=== PATIENT | female | born 1935 | race Caucasian/White ===

== ENCOUNTER → 2016-08-07 | Outpatient (CLI) | payer MEDICARE, OTHER ==
[~2016-08-07] VITALS: Ht 154.9 cm; Wt 50.8 kg
[~2016-08-07] MED LIST: /SUCR1TA; ACET65TA; AMLO10TAB; BABY81CH; BENA10TA2; CALCCHW12; LIDOCAINE VISCOUS 2% SOLN 15ML UDC As Ordered ONE; LIDOCAINE VISCOUS 2% SOLN 15ML UDC MT ONE; LOVA20TA2; MIDAZOLAM INJ 2 MG/2 ML VIAL (J2250) As Ordered ONE; MIDAZOLAM INJ 2 MG/2 ML VIAL (J2250) IV ONE; NS 1,000 ML IV SCH; PRIL20CA; fentaNYL 100 MCG/2 ML INJECTION (J3010) As Ordered ONE; fentaNYL 100 MCG/2 ML INJECTION (J3010) IV ONE
--- NOTE | 2016-08-07 13:24 | T-ECHO ---
DATE OF STUDY: 08/07/2016 INDICATION: Mitral valve prolapse. Severe mitral insufficiency. PROCEDURE: Transesophageal echocardiogram. BRIEF HISTORY: Mrs. Yadav is a 81-year-old female who has known mitral valve prolapse with significant mitral insufficiency. As of lately, she became more symptomatic with exertional dyspnea and she also has evidence for atrial arrhythmias. Consequently she was brought for transesophageal echocardiogram to evaluate the mitral valve and assist with decision making regarding need for invasive treatment. The nature of the procedure, its indication, possible complications were discussed with the patient and her on outpatient basis. She signed appropriate consent. PROCEDURE NOTE: Procedure was performed in endoscopy suite. The patient presented in fasting condition. She previously signed appropriate consent. Posterior pharynx was anesthetized using viscous lidocaine and Cetacaine spray. The patient was positioned in left lateral decubitus position and a bite block was secured in her mouth. Probe was then introduced into esophagus and later stomach without difficulty. After appropriate images were obtained it was withdrawn. There were no immediate complications. FINDINGS: Left ventricle has hyperdynamic contractility and I estimate ejection fraction (EF) around 65-70%. Right ventricle does not appear enlarged. Both atria are severely enlarged. Mitral valve exhibits severe prolapse of posterior mitral leaflets with chordal rupture and resulting severe very eccentric mitral insufficiency. There is no convincing flow reversal in pulmonary veins though. I suspect this is most likely due to degree of left atrial enlargement. Tricuspid valve also appears to be slightly redundant and there is approximately moderate tricuspid insufficiency. Calculated pulmonary artery pressure is in high 40s, possibly even higher corresponding to at least moderate pulmonary hypertension. Aortic valve appears normal. By color Doppler imaging, there is no stenosis and trivial insufficiency. Pulmonic valve also appears normal and is functionally competent. Left atrial appendage is large and free of thrombus. Flow in both left-sided and right-sided pulmonary veins appears normal with exception of reversal of systolic flow post PAC. Atrial septum is intact by two-dimensional and color Doppler imaging and is bulging towards the right. There is small degree of atherosclerosis in aortic arch and visualized segment of descending aorta. CONCLUSIONS: 1. Hyperdynamic LV systolic function. 2. Severe posterior mitral leaflet prolapse with torn and resulting severe mitral insufficiency. 3. Trace aortic insufficiency. 4. Moderate tricuspid insufficiency. 5. At least moderate pulmonary hypertension. 6. Mild thoracic aortic atherosclerosis. COMMENTS: SBE prophylaxis is not recommended. The patient will be set up for a right and left heart catheterization with likely mitral and tricuspid valve surgery to follow. Her preference is to have Dr. Dany Crystal as a surgeon and I will contact him with these plans and provide a copy of this transesophageal echocardiogram. A total 4 mg of IV Versed and 50 mcg of IV fentanyl were used for sedation.
[2016-08-07 13:27] VITALS: BP 149/84
== END | disposition home or self-care (01) ==
LOC: M OPP 11:01
PROVIDERS: ATTEND Internal Medicine Cardiovascular Disease
DX: I08.0 Rheumatic disorders of both mitral and aortic valves (principal); I50.1 Left ventricular failure, unspecified; I27.2 Other secondary pulmonary hypertension; I70.0 Atherosclerosis of aorta; K21.9 Gastro-esophageal reflux disease without esophagitis; Z88.8 Allergy status to other drugs, medicaments and biological substances; Z82.49 Family history of ischemic heart disease and other diseases of the circulatory system
CPT/HCPCS: 93312; 93320; 93325; J2250; J3010

== ENCOUNTER → 2016-09-25 | Outpatient (CLI) | payer MEDICARE, OTHER ==
[~2016-09-25] MED LIST changes: -LIDOCAINE VISCOUS 2% SOLN 15ML UDC As Ordered ONE; -LIDOCAINE VISCOUS 2% SOLN 15ML UDC MT ONE; -MIDAZOLAM INJ 2 MG/2 ML VIAL (J2250) As Ordered ONE; -MIDAZOLAM INJ 2 MG/2 ML VIAL (J2250) IV ONE; -NS 1,000 ML IV SCH; -fentaNYL 100 MCG/2 ML INJECTION (J3010) As Ordered ONE; -fentaNYL 100 MCG/2 ML INJECTION (J3010) IV ONE
--- NOTE | 2016-09-25 15:32 | REPMRS ---
Patient History The patient states she had a clinical breast exam in 10/07 Patient is postmenopausal and has history of cervical cancer at age 50. Family history of prostate cancer in father at age 50 or over, breast cancer in paternal aunt at age 50 or over, prostate cancer in 2 brothers at age 50 or over, and breast cancer in maternal uncle at age 50 or over. Benign excisional biopsy of the left breast, 1995. Benign excisional biopsy of the right breast, 1987. Benign stereotatic breast biopsy of the left breast. Digital Woman Screen Mammo: September 25, 2016 - Exam #: [id number] Bilateral CC and MLO view(s) were taken. Technologist: Stacy Newsome, Technologist Prior study comparison: September 26, 2015, digital woman screen mammo performed at [facility]. September 21, 2014, digital woman screen mammo performed at [facility]. September 20, 2013, digital woman screen mammo performed at [facility]. September 17, 2011, digital woman screen mammo performed at [facility] [employer] [facility]. FINDINGS: There are scattered fibroglandular densities. There are scattered areas of microcalcifications in the left and to a lesser extent, the right breast unchanged from multiple prior studies. There has been no change in the appearance of the mammogram from the prior studies. There is a mild amount of scattered fibroglandular density which is fairly symmetric. There is no interval development of dominant mass, architectural distortion, or clustered microcalcification suggestive of malignancy. ASSESSMENT: BI-RADS/ACR category 1 mammogram. Negative. Recommendation Routine screening mammogram in 1 year (for women over age 40). This mammogram was interpreted with the aid of an FDA-approved computer-aided dectection system. Electronically Signed By: Daniel Hager MD 09/25/16 [id number]
== END ==
LOC: M WHC 09:36
PROVIDERS: ATTEND Internal Medicine
DX: Z12.31 Encounter for screening mammogram for malignant neoplasm of breast (principal); Z78.0 Asymptomatic menopausal state; Z85.41 Personal history of malignant neoplasm of cervix uteri; Z80.42 Family history of malignant neoplasm of prostate; Z92.89 Personal history of other medical treatment

== ENCOUNTER → 2016-11-06 | Outpatient (REF) | payer MEDICARE, OTHER ==
[2016-11-07 13:14] LABS: INR 3.44
== END ==
LOC: M LAB REF 13:10
PROVIDERS: ATTEND Internal Medicine Cardiovascular Disease
DX: I34.0 Nonrheumatic mitral (valve) insufficiency (principal); Z51.81 Encounter for therapeutic drug level monitoring; Z79.01 Long term (current) use of anticoagulants

== ENCOUNTER → 2017-09-10 | Outpatient (CLI) | payer MEDICARE, OTHER | LOC: M SMT 14:23 | DX: R06.00 Dyspnea, unspecified (principal); Z95.5 Presence of coronary angioplasty implant and graft; Z95.0 Presence of cardiac pacemaker; R91.1 Solitary pulmonary nodule; R91.8 Other nonspecific abnormal finding of lung field | CPT/HCPCS: 71046 ==

== ENCOUNTER → 2017-09-26 | Outpatient (CLI) | payer MEDICARE, OTHER | LOC: M WHC 11:05 | DX: Z12.31 Encounter for screening mammogram for malignant neoplasm of breast (principal); Z78.0 Asymptomatic menopausal state; Z92.89 Personal history of other medical treatment | CPT/HCPCS: 77067 ==

== ENCOUNTER → 2017-10-03 | Outpatient (CLI) | payer MEDICARE, OTHER | LOC: M RAD 09:58 | DX: R91.1 Solitary pulmonary nodule (principal); Z95.2 Presence of prosthetic heart valve | CPT/HCPCS: 71250 ==

== ENCOUNTER → 2017-11-06 | Outpatient (CLI) | payer MEDICARE, OTHER | LOC: M SMT 12:52 | DX: I51.7 Cardiomegaly (principal); Z95.1 Presence of aortocoronary bypass graft; Z95.0 Presence of cardiac pacemaker; J84.10 Pulmonary fibrosis, unspecified | CPT/HCPCS: 71046 ==

== ENCOUNTER → 2018-10-22 | Outpatient (CLI) | payer MEDICARE, OTHER ==
[~2018-10-22] MED LIST changes: -/SUCR1TA; +SUCR1TAB56
--- NOTE | 2018-10-22 14:12 | REPMRS ---
Patient History The patient states she has not had a clinical breast exam in over a year. Patient is postmenopausal and has history of cervical cancer at age 50 and basal cell skin cancer starting at 77.. Family history of breast cancer at age 50 or over in paternal aunt, breast cancer at age 50 or over in maternal uncle, prostate cancer at age 50 or over in father, prostate cancer at age 50 or over in brother, prostate cancer at age 50 or over in brother, ovarian cancer at age 50 or over in paternal aunt. Benign excisional biopsy of the left breast, 1995. Benign excisional biopsy of the right breast, 1987. Benign stereotatic breast biopsy of the left breast. No Hormone Replacement Therapy Digital Woman Screen Mammo: October 22, 2018 - Exam #: [id number] Bilateral CC and MLO view(s) were taken. Technologist: Jasmin Layne, Technologist Prior study comparison: September 26, 2017, bilateral digital woman screen mammo performed at [facility]. September 25, 2016, digital woman screen mammo performed at [facility]. September 26, 2015, digital woman screen mammo performed at [facility]. October 01, 2013, left breast digital mammo diagnostic unilateral, performed at [facility]. FINDINGS: There are scattered fibroglandular densities. There are scattered stable areas of microcalcification again noted in the left breast unchanged from multiple prior studies. There has been no change in the appearance of the mammogram from the prior studies. There is a mild amount of scattered fibroglandular density which is fairly symmetric. There is no interval development of dominant mass, architectural distortion, or grouped microcalcification suggestive of malignancy. 3-D tomosynthesis shows no additional findings. Assessment: BI-RADS/ACR category 2 mammogram. Benign Findings. Recommendation Routine screening mammogram of both breasts in 1 year (for women over age 40). This patient's Lifetime Breast Cancer Risk is estimated at 1.6 %. This mammogram was interpreted with the aid of an FDA-approved computer-aided dectection system. Electronically Signed By: Daniel Hager MD 10/22/18 [id number]
== END ==
LOC: M WHC 13:03
PROVIDERS: ATTEND Internal Medicine
DX: Z12.31 Encounter for screening mammogram for malignant neoplasm of breast (principal)

== ENCOUNTER 2019-01-26 09:17 | Day surgery (SDC) | payer MEDICARE, OTHER ==
[~2019-01-26] VITALS: Ht 154.9 cm; Wt 51.7 kg
[~2019-01-26 09:17] MED LIST changes: +LEXA1TAB PO; +LOSA100T8 PO; +LOVA10TA PO; +METO25TA4 PO; +WARF-58 PO
[2019-01-26] MEDS ORDERED: NS 1,000 ML IV ONE (10:00)
[2019-01-26] MEDS ORDERED: LIDOCAINE 2% INJ 100 MG/5 ML SDV (FOR ANES.) As Ordered ONE (10:43)
[2019-01-26] MEDS ORDERED: PROPOFOL 200 MG/20 ML VIAL As Ordered ONE ×2 (10:43→11:36)
[2019-01-26] MEDS ORDERED: PHENYLephrine HCL 500 MCG/5 ML (100MCG/ML) SYRINGE (J2370) As Ordered ONE (11:39)
--- NOTE | 2019-01-26 11:49 | ROOR ---
Patient Name: Cecilia Yadav Procedure Date: 01/26/2019 11:07 AM Date of : 1935 Age: 83 Room: LTAC, [facility] Gender: Female Note Status: Finalized Procedure: Colonoscopy Indications: High risk colon cancer surveillance: Personal history of colonic polyps Providers: Lopez ROGERS MD Referring MD: KIP GORDON MD Requesting Provider: Medicines: Monitored Anesthesia Care Complications: No immediate complications. Procedure: Pre-Anesthesia Assessment: - The heart rate, respiratory rate, oxygen saturations, blood pressure, adequacy of pulmonary ventilation, and response to care were monitored throughout the procedure. The Colonoscope was introduced through the anus and advanced to the terminal ileum, with identification of the appendiceal orifice and IC valve. The colonoscopy was performed without difficulty. The patient tolerated the procedure well. The quality of the bowel preparation was good. Findings: The perianal and digital rectal examinations were normal. Two sessile polyps were found in the hepatic flexure and cecum. The polyps were 4 to 5 mm in size. These polyps were removed with a cold snare. Resection and retrieval were complete. A 10 mm polyp was found in the splenic flexure. The polyp was sessile. The polyp was removed with a piecemeal technique using a cold snare. Resection and retrieval were complete. Mild sigmoid diverticulosis and small internal hemorrhoids. The exam was otherwise without abnormality on direct and retroflexion views. Impression: - Two 4 to 5 mm polyps at the hepatic flexure and in the cecum, removed with a cold snare. Resected and retrieved. - One 10 mm polyp at the splenic flexure, removed piecemeal using a cold snare. Resected and retrieved. - Mild sigmoid diverticulosis and small internal hemorrhoids. - The examination was otherwise normal on direct and retroflexion views. Recommendation: - Repeat colonoscopy in 3 years for surveillance. - Resume Coumadin (warfarin) at prior dose tomorrow. Lopez Rogers MD Lopez ROGERS MD 01/26/2019 11:49:03 AM Electronically signed by Lopez ROGERS MD Number of Addenda: 0 Note Initiated On: 01/26/2019 11:07 AM Estimated Blood Loss: Estimated blood loss: none.
[2019-01-26 12:05] VITALS: BP 150/98
== END 2019-01-26 12:31 | disposition home or self-care (01) ==
LOC: M OPP 09:17
PROVIDERS: ATTEND Internal Medicine Gastroenterology
DX: Z12.11 Encounter for screening for malignant neoplasm of colon (principal); Z86.010 Personal history of colon polyps; Z80.0 Family history of malignant neoplasm of digestive organs; K63.5 Polyp of colon; K57.30 Diverticulosis of large intestine without perforation or abscess without bleeding; K64.8 Other hemorrhoids; I48.91 Unspecified atrial fibrillation; Z95.0 Presence of cardiac pacemaker; Z95.4 Presence of other heart-valve replacement; Z87.891 Personal history of nicotine dependence; Z79.891 Long term (current) use of opiate analgesic
CPT/HCPCS: 45385; 88305; J2370

== ENCOUNTER → 2019-11-09 | Outpatient (CLI) | payer MEDICARE, OTHER ==
--- NOTE | 2019-11-24 14:35 | REPMRS ---
Patient History The patient states she had a clinical breast exam in September 2019. Patient is postmenopausal and has history of cervical cancer at age 50. Family history of breast cancer at age 50 or over in paternal aunt, breast cancer at age 50 or over in maternal uncle, prostate cancer at age 50 or over in father, prostate cancer at age 50 or over in brother, prostate cancer at age 50 or over in brother, ovarian cancer at age 50 or over in paternal aunt. Benign excisional biopsy of the left breast, 1995. Benign excisional biopsy of the right breast, 1987. Benign stereotatic breast biopsy of the left breast. No Hormone Replacement Therapy Digital Woman Screen Mammo: November 09, 2019 - Exam #: [id number] Bilateral CC and MLO view(s) were taken. Technologist: Jeni Evangelista Technologist Prior study comparison: October 22, 2018, bilateral digital woman screen mammo performed at [facility]. September 26, 2017, bilateral digital woman screen mammo performed at [facility]. September 25, 2016, digital woman screen mammo performed at [facility]. FINDINGS: There are scattered fibroglandular densities. The Volpara volumetric breast density category is:B. There is a pacemaker power plant projecting over the left axilla on the MLO view. There aree stable calcifications again noted on the left. There has been no change in the appearance of the mammogram from the prior studies. There is a mild amount of scattered fibroglandular density which is fairly symmetric. There is no interval development of dominant mass, architectural distortion, or grouped microcalcification suggestive of malignancy. 3-D tomosynthesis shows no additional findings. Assessment: BI-RADS/ACR category 2 mammogram. Benign Findings. Recommendation Routine screening mammogram of both breasts in 1 year (for women over age 40). This patient's Lifetime Breast Cancer Risk is estimated at 1.2 %. This mammogram was interpreted with the aid of an FDA-approved computer-aided dectection system. Electronically Signed By: Daniel Hager MD 11/24/19 [id number]
== END ==
LOC: M WHC 17:09
PROVIDERS: ATTEND Internal Medicine
DX: Z12.31 Encounter for screening mammogram for malignant neoplasm of breast (principal)

== ENCOUNTER → 2020-10-23 | Outpatient (CLI) | payer MEDICARE, OTHER ==
--- NOTE | 2020-10-23 19:48 | REP ---
INDICATION: I48.91 UNSPECIFIED ATRIAL FIBRILLATION COMPARISON: 11/06/2017. TECHNIQUE: PA/Lateral FINDINGS: Lungs: There are stable chronic bibasilar fibrotic changes. No superimposed acute infiltrate is seen. Heart: There is moderate cardiomegaly. Mediastinum: There is calcification of the thoracic aorta. The mediastinal silhouette is unchanged. Pleural angles: Unremarkable.. Bones and soft tissues: There are degenerative changes of the spine. 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 IMPRESSION: Chronic fibrotic changes and moderate cardiomegaly. No significant change compared to the prior study. <Electronically signed by Omi Pinzon > 10/23/20 [id number]
== END ==
LOC: M WUC 14:23
PROVIDERS: ATTEND Internal Medicine
DX: I48.91 Unspecified atrial fibrillation (principal); I51.7 Cardiomegaly; J84.10 Pulmonary fibrosis, unspecified; Z95.0 Presence of cardiac pacemaker

== ENCOUNTER → 2020-11-03 | Outpatient (CLI) | payer MEDICARE, OTHER ==
[~2020-11-03] MED LIST changes: +ISOVUE-370 76% 100ML VIAL As Ordered ONE
--- NOTE | 2020-11-03 11:39 | REP ---
INDICATION: COUGH. COMPARISON: Chest x-ray 10/23/2020 TECHNIQUE: Scans were obtained during contrast administration. FINDINGS: Since the previous study a segmental area of consolidation has developed in the right lower lobe. Chronic changes noted in the left lower lobe and right upper lobe. The lungs are emphysematous. No hilar or mediastinal adenopathy. The heart is enlarged No pleural effusion. Adrenal glands not enlarged. IMPRESSION: Right lower lobe pneumonia has developed since the previous study. <Electronically signed by Wai Steinberg > 11/03/20 1133
== END ==
LOC: M RAD 11:08
PROVIDERS: ATTEND Internal Medicine
DX: J18.9 Pneumonia, unspecified organism (principal); R05 Cough
CPT/HCPCS: 71260; Q9967

== ENCOUNTER → 2020-11-17 | Outpatient (CLI) | payer MEDICARE, OTHER ==
[~2020-11-17] MED LIST changes: -ISOVUE-370 76% 100ML VIAL As Ordered ONE
--- NOTE | 2020-11-17 12:11 | REPMRS ---
Patient History The patient states she has not had a clinical breast exam in over a year. Family history of breast cancer at age 50 or over in paternal aunt, breast cancer at age 50 or over in maternal uncle, prostate cancer at age 50 or over in father, prostate cancer at age 50 or over in brother, prostate cancer at age 50 or over in brother, ovarian cancer at age 50 or over in paternal aunt. Benign excisional biopsy of the left breast, 1995. Benign excisional biopsy of the right breast, 1987. Benign stereotatic breast biopsy of the left breast. No Hormone Replacement Therapy Moderna vaccine 05/05/20 right arm. 06/01/20 right arm. Patient states no breast complaints today. Patient has signed MRS History Sheet. Digital Woman Screen Mammo: November 17, 2020 - Exam #: [id number] Bilateral CC and MLO view(s) were taken. Technologist: Ellie Spicer, RT Prior study comparison: November 09, 2019, bilateral digital woman screen mammo performed at [facility]. October 22, 2018, bilateral digital woman screen mammo performed at [facility]. September 26, 2017, bilateral digital woman screen mammo performed at [facility]. FINDINGS: The breast tissue is heterogeneously dense. This may lower the sensitivity of mammography. The Volpara volumetric breast density category is: C. Multiple skin moles are again seen projecting on the left. The left MLO view today shows a nodular density with punctate calcifications seen superiorly and posteriorly. This appears more prominent. This merits further evaluation. It is only seen in the MLO projection. There is a moderate amount of heterogeneously dense fibroglandular tissue which is fairly symmetric. There is no other interval development of dominant mass, architectural distortion, or grouped microcalcification typical of malignancy. There has been no other change in the appearance of the mammogram from the prior studies. 3-D tomosynthesis shows no additional findings. Assessment: BI-RADS/ACR category 0 mammogram, Incomplete: Need additional imaging evaluation and/or prior mammograms for comparison. Recommendation Ultrasound and special view mammogram of the left breast. This patient's [facility] Lifetime Breast Cancer RIsk is estimated at 0.8 %. This mammogram was interpreted with the aid of an FDA-approved computer-aided dectection system. Electronically Signed By: Daniel Hager MD 11/17/20 1417
== END ==
LOC: M WHC 10:34
PROVIDERS: ATTEND Internal Medicine
DX: Z12.31 Encounter for screening mammogram for malignant neoplasm of breast (principal); Z80.3 Family history of malignant neoplasm of breast; Z80.42 Family history of malignant neoplasm of prostate; Z80.41 Family history of malignant neoplasm of ovary; Z98.890 Other specified postprocedural states; R92.8 Other abnormal and inconclusive findings on diagnostic imaging of breast

== ENCOUNTER → 2020-12-20 | Outpatient (CLI) | payer MEDICARE, OTHER ==
--- NOTE | 2020-12-20 13:45 | REP ---
INDICATION: LEFT BREAST ADD VIEWS. COMPARISON: Multiple TECHNIQUE: Diagnostic digital magnified spot compression views of the left breast near the 12 o'clock position. FINDINGS: Calcifications seen in the upper aspect of the left breast on the MLO view and inner aspect on the CC view are better imaged using today's digital magnified technique. These calcifications have a variance in size, shape, radiographic density. They are associated with increased breast parenchymal density. IMPRESSION: BIRADS/ACR category 4 mammogram. Left breast calcifications as described above for which stereotactic biopsy is recommended. The patient letter being requested is M4. RECOMMENDATION: As above <Electronically signed by Daquan Beaver > 12/20/20 [id number]
== END ==
LOC: M WHC 12:43
PROVIDERS: ATTEND Internal Medicine
DX: N63.25 Unspecified lump in the left breast, overlapping quadrants (principal); R92.1 Mammographic calcification found on diagnostic imaging of breast

== ENCOUNTER → 2021-01-05 | Outpatient (CLI) | payer MEDICARE, OTHER | LOC: M PLALAB 12:44 | PROVIDERS: ATTEND Surgery | DX: Z13.79 Encounter for other screening for genetic and chromosomal anomalies (principal) ==

== ENCOUNTER → 2021-01-09 | Outpatient (CLI) | payer MEDICARE, OTHER ==
--- NOTE | 2021-01-09 15:31 | REP ---
INDICATION: ABNORMAL MAMMO OF LEFT BREAST, 1130 7.5 CFN. COMPARISON: Mammogram 11/17/2020 and 12/20/2020. TECHNIQUE: Real-time sonographic evaluation of left breast performed. FINDINGS: In the left breast between 11 and 12 o'clock there is an oval hypoechoic nodule with what appear to be adjacent punctate calcifications. The nodule may be cystic. It measures 5 x 3 x 5 mm. This likely corresponds to the mammographic abnormality. IMPRESSION: BIRADS/ACR category 4, suspicious. Oval hypoechoic nodule 11-12 o'clock left breast with associated punctate calcifications. This appears to correspond to the suspicious area on the recent left breast mammograms. Recommend ultrasound guided or stereotactic biopsy with postprocedure specimen radiographs and mammography. RECOMMENDATION: As above. <Electronically signed by Omi Pinzon > 01/09/21 [id number]
== END ==
LOC: M WHC 13:01
PROVIDERS: ATTEND Surgery
DX: R92.8 Other abnormal and inconclusive findings on diagnostic imaging of breast (principal); N63.22 Unspecified lump in the left breast, upper inner quadrant

== ENCOUNTER → 2021-01-31 | Outpatient (CLI) | payer MEDICARE, OTHER ==
[~2021-01-31] MED LIST changes: +VITMTA PO
[2021-01-31 15:55] VITALS: BP 148/84
--- NOTE | 2021-02-03 09:44 | ROOPDOC ---
[facility] Report Of Operation Report of Operation DATE OF PROCEDURE: 01/31/2021 DIAGNOSIS: left breast suspicious lesion PROCEDURE: ultrasound guided biopsy of the left breast suspicious lesion with clip placement and specimen radiography with interpretation SURGEON: Dilma Mosley BLOOD LOSS: minimal COMPLICATIONS: none Lidocaine 1% LOT [id number] Expiration 07/2024 Sodium Bicarbonate 8.4% LOT [id number] Expiration 04/2021 Hydromark clip LOT [id number] Expiration 06/2023 SHAPE: 4 Bx device: TEMNO 18G x 20 cm LOT [id number] Expiration 04/2024 Informed consent was obtained. The most common risk and possible complications including bleeding, hematoma, bruising, infection, injury to surrounding structures were explained to the patient and the patient expressed understanding. Patient was placed on the bed in the supine position. Appropriate time out was done stating patients name, date of , and the procedure to be performed. The left breast was prepped and draped in the usual fashion. The ultrasound was used to confirm the location of the lesion in the left breast at 11:30 7.5 centimeters from the nipple. This is potential sonographic correlate of mammographic lesion with calcifications. Plain Lidocaine 1% and 8.4% sodium bicarbonate 10:1 mix was used to anesthetize the skin, the biopsy site and tissues along the anticipated biopsy tract. Small skin incision was made with blade number 11. Temno 18G cannula with introducer was inserted through the incision and advanced under the ultrasound guidance to position immediately adjacent to the hypoechoic sonographic correlate. Next, the introducer was removed and Temno 18G biopsy device was places in the cannula. Pre-biopsy imaging, and post-biopsy imaging were captured. Five good core biopsies were taken at various levels of the lesion. Specimen was placed on the tray and specimen radiography was done. Image showed numerous calcifications seen in the specimen cores. At this time, the specimen was placed in formaldehyde, labeled with appropriate biopsy site and patients name, and sent to pathology for evaluation. Next, the biopsy device and cannula were withdrawn and a clip introducer was inserted into the position immediately adjacent to the biopsied lymph node. The SHAPE 4 Hydromark clip was deployed under sonographic guidance. Post-clip placement image was captured. Manual pressure over the biopsy cavity and tract was held after the clip introducer was withdrawn. No bleeding was noted upon removal of the pressure. Post-biopsy mammogram of the left breast was obtained and showed clip in expected position next to few remaining calcifications. Postprocedural dressing was placed. Patient tolerated procedure well. Discharge instructions were discussed with the patient and the patient expressed understanding. DILMA MOSLEY DO Feb 03, 2021 09:44
== END ==
LOC: M WHCPRO 08:02
PROVIDERS: ATTEND Surgery
DX: C50.212 Malignant neoplasm of upper-inner quadrant of left female breast (principal)

== ENCOUNTER → 2021-02-09 | Outpatient (CLI) | payer MEDICARE, OTHER ==
--- NOTE | 2021-02-09 12:13 | RADONC.CN ---
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 She is seen today prior to surgery because she has a PPM that is ~ 6 cm away from the location of the tumor and Dr. Lozoya requested an evaluation of whether adjuvant RT following lumpectomy would be feasible given the location of the device. Diagnosis/Treatment History Oncologic History 11/17/20 Mammogram with nodular density with calcifications in the left breast 12/20/20 Diagnostic mammogram showed calcifications in the upper outer quadrant of the left breast 01/09/21 US showing hypoechoic nodule int he 12 o'clock left breast 01/31/21 Biopsy showing IDC ER/MO+ HER2 pending grade 2 Breast history: Menses @ 15 Menopause @ 57 1st @ 21 OCP x 10 years HRT x 10 years No IVF Prior breast biopsies Interval History Cecilia feels well. She has stable appetite and energy. Is fully ambulatory. She has no breast complaints. She never felt any lesions in the left breast. She has a PPM. She reports that she is not pacemaker dependent. No AICD. No history of cardiac arrest. No CP, SOB. Past Medical History: HTN HPL Valvular a fib Past Surgical History: Mitral valve replacement PPM implant Appedectomy Family History: Mother lung cancer Father penile cancer 2 brothers prostate cancer Paternal aunt breast cancer Paternal aunt ovarian cancer Maternal uncle breast cancer Social History: 50 pack year former smoker quit Non-drinker Allergies / Meds Allergies: Coded Allergies: No Known Allergies (Unverified , 01/18/19) Home Meds Reported Medications Multivitamins (Thera M Plus Tablet) 1 Each Tablet, 1 TAB PO QAM for 30 Days, #30 TAB 01/31/21 Escitalopram Oxalate (Lexapro) 10 Mg Tablet, 20 MG PO DAILY, TAB 01/18/19 Metoprolol Tartrate (Metoprolol Tartrate) 25 Mg Tablet, 25 MG PO DAILY, TAB 01/18/19 Warfarin Sodium (Warfarin Sodium) 3 Mg Tablet, 3 MG PO DAILY, TAB 1.5 mg MON and THURS 01/18/19 Lovastatin (Lovastatin) 10 Mg Tablet, 20 MG PO DAILY, TAB 01/18/19 Losartan/Hydrochlorothiazide (Losartan-Hctz 100-12.5 mg Tab) 1 Each Tablet, 1 TAB PO DAILY, TAB 01/18/19 Review of Systems Constitutional: Denies: Fatigue, Weight Loss Eyes: Denies: Pain HEENT: Denies: Head Aches Skin: Denies: Rash Pulmonary: Denies: Dyspnea, Cough Cardiovascular: Denies: Chest Pain, Palpitations Breast: Denies: New Breast Lumps / Masses, Nipple Retraction, Nipple Discharge, Breast Skin Changes, Breast Pain or Tenderness Gastrointestinal: Denies: Abdominal Pain Endocrine: Denies: Cold Intolerance Musculoskeletal: Denies: Neck pain, Back pain Neurological: Denies: Weakness, Numbness Psych: Reports: Mood Normal Vital Signs Wt 119 lbs VS WNL General Exam: Alert, Cooperative, No Acute Distress Eye Exam: PERRLA EOMI ENT EXAM: Atraumatic Neck Exam: Supple; Negative: Lymphadenopathy Chest Exam: Clear to auscultation, Normal air movement Heart Exam: Rate Normal, Regular Rhythm Breast Exam: Symmetric Bilaterally (Ptosis); Negative: Lumps or Masses (No palpable masses BL breasts. There is a PPM implant in the superior left breast. ) Abdomen Exam: Soft Extremity Exam: Negative: Edema Skin Exam: Nl turgor and temperature Neuro Exam: Normal Gait, Normal Speech, Cranial Nerves 3-12 NL Psych Exam: Mental status NL Diagnostic and Laboratory Diagnostic Review Radiologic images, relevant labs and pathology reports were personally reviewed and discussed with Ms. Yadav. Assessment and Plan Impression Ms. 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 She is seen today prior to surgery because she has a PPM that is ~ 6 cm away from the location of the tumor and Dr. Lozoya requested an evaluation of whether adjuvant RT following lumpectomy would be feasible given the location of the device. Stage Left upper outer breast cancer [id number] ER/MO+ HER2 pending grade 2 Performance Status ECOG 0 Plan We had an extensive discussion with Ms. Yadav regarding the diagnosis at hand and available therapeutic options. She is quite fit and by initial clinical staging has an early stage left breast lesion ~6 cm from the PPM. I explained that following lumpectomy the decision to proceed with adjuvant RT is based on final pathology. All early indications imply that she will have no adverse final pathologic features, barring the unlikely, given her age and ER/MO+ status, she would be eligible for omission of RT based on the CALGB 9343 trial. The alternative I would recommend if she desires maximal [id number] for an early stage lesion is APBI, for which I would give 5 fractions of daily treatment with VMAT planning which could effectively spare the PPM without difficulty. We of course would interrogate the device per applicable AAPM guidelines. If she were to have a stronger indication for adjuvant RT to include RNI, then we could still pursue RT with high risk appropriate device monitoring, because she is not pacemaker dependent and she does not have an AICD that could hurt her. We will follow up with her once surgery is completed for a final recommendation. We instructed the patient that if there were any questions,concerns or changes in clinical status in the interim to contact us. Recommendations Lumpectomy + adjuvant APBI feasible v omission of RT as discussed above Will follow up after surgery for final recommendations Billing Statement Total time of [50] minutes was spent preparing for the visit [4], obtaining HPI [10], examining the patient [4], reviewing diagnostic tests [5], discussing management options [15], coordinating care [4], and writing this note [8]. KARUNA HUSTON MD Feb 09, 2021 12:13
== END ==
LOC: M ONCR 09:45
PROVIDERS: ATTEND General Practice
DX: C50.412 Malignant neoplasm of upper-outer quadrant of left female breast (principal); Z95.0 Presence of cardiac pacemaker; Z79.899 Other long term (current) drug therapy

== ENCOUNTER → 2021-02-26 | Outpatient (CLI) | payer MEDICARE, OTHER ==
--- NOTE | 2021-02-27 19:22 | REP ---
INDICATION: STAGING LT BREAST CA. COMPARISON: Chest CT with IV contrast, 11/03/2020. TECHNIQUE: Following the intravenous injection of 9.1 mCi of FDG and a standard uptake period, a noncontrast CT scan, followed by a PET scan were acquired along the length of the body from the base of the skull to the mid thighs. The noncontrast helical CT imaging was performed, without breath hold, for attenuation correction of PET images and anatomic correlation, but not for primary interpretation, as it is not a of standard diagnostic quality. Images were reviewed in the axial, coronal and sagittal planes. FINDINGS: Head and neck: There is a normal distribution of FDG activity in the visualized brain parenchyma. There is calcific vascular disease of the intracranial portion of both internal carotid arteries and the left vertebral artery. There is calcific vascular disease at both carotid bifurcations. There is normal uptake within the soft tissues of the neck and glandular structures. There is no lymphadenopathy identified. Chest: There is an area of pleural based masslike consolidation in the right lung apex demonstrating FDG activity, max SUV 4.4. There is a mass in the superior segment of the lower lobe of the right lung measuring approximately 7.6 x 7.1 x 2.9 cm, demonstrating FDG activity, max SUV 5.3. There are no pleural effusions. The heart is enlarged. There is no pericardial effusion. 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 There is a mitral valve prosthesis. There is a pacemaker device in the left upper chest wall, with leads in the right heart. There is a pericardial pacemaker wire. There is no adenopathy in the mediastinum, hilum or axilla by size criterion or metabolic activity. Abdomen and pelvis: There is a normal distribution of FDG activity within the gastrointestinal and genitourinary tract. No evidence of lymphadenopathy. There is calcific vascular disease of the abdominal aorta. There is colonic diverticulosis without diverticulitis. There is a cystic mass in the right hemipelvis measuring approximately 7.4 x 7.4 x 5.7 cm. The cystic mass has no visible wall and demonstrates no FDG activity consistent with a benign ovarian cyst. Musculoskeletal: There are no suspicious hypermetabolic, osteolytic or osteo sclerotic lesions. IMPRESSION: 1. There is no significant FDG activity in either breast or in either axilla. 2. Area of masslike consolidation in the right lung apex demonstrating FDG activity suggestive of neoplasm. 3. Apparent slow growing mass in the lower lobe of the right lung demonstrating FDG activity suggestive of neoplasm. 4. Other findings as noted. <Electronically signed by Bryan Aguirre > 02/27/211918
== END ==
LOC: M PLARAD 11:29
PROVIDERS: ATTEND Surgery
DX: C50.212 Malignant neoplasm of upper-inner quadrant of left female breast (principal); C50.912 Malignant neoplasm of unspecified site of left female breast; R91.8 Other nonspecific abnormal finding of lung field
CPT/HCPCS: 78815; A9552

== ENCOUNTER → 2021-03-08 | Outpatient (CLI) | payer MEDICARE, OTHER | LOC: M LABSMTC 10:12 | PROVIDERS: ATTEND Anesthesiology | DX: Z01.818 Encounter for other preprocedural examination (principal); Z11.52 Encounter for screening for COVID-19 ==

== ENCOUNTER → 2021-03-09 | Outpatient (CLI) | payer MEDICARE, OTHER ==
[~2021-03-09] MED LIST changes: +CALCTAB89 PO; +D 50CAP2 PO; +HYDR12.55 PO; +LETR2.5T2 PO; +LEXA1TAB2 PO; +LOSA100T45 PO; +LOVA20TA2 PO; +ROXI1TAB2 PO; +VITAD400CA PO
== END ==
LOC: M WHC 12:57
PROVIDERS: ATTEND Surgery
DX: R94.8 Abnormal results of function studies of other organs and systems (principal); N85.8 Other specified noninflammatory disorders of uterus

== ENCOUNTER → 2021-03-09 | Outpatient (CLI) | payer MEDICARE, OTHER ==
[2021-03-09 15:33] LABS: HEMATOCRIT 41.4 % (36.0-47.0); HEMOGLOBIN 13.4 g/dl (12.0-15.5); MEAN CORPUSCULAR HEMOGLOBIN 29.8 pg (27.0-33.0); MEAN CORPUSCULAR HGB CONC 32.4 g/dl (32.0-36.5); MEAN CORPUSCULAR VOLUME 92.2 fl (80.0-96.0); PLATELET COUNT, AUTOMATED 179 10^3/uL (150-450); RED BLOOD COUNT 4.49 10^6/uL (4.00-5.40); WHITE BLOOD COUNT 5.6 10^3/uL (4.0-10.0)
[2021-03-09 15:50] LABS: BLOOD UREA NITROGEN 21 MG/DL (7-18); CALCIUM LEVEL 8.7 MG/DL (8.8-10.2); CARBON DIOXIDE LEVEL 27 MEQ/L (21-32); CHLORIDE LEVEL 107 MEQ/L (98-107); CREATININE FOR GFR 0.78 MG/DL (0.55-1.30); GLOMERULAR FILTRATION RATE > 60.0 (>32); GLUCOSE, FASTING 108 MG/DL (70-100); SODIUM LEVEL 138 MEQ/L (136-145)
== END ==
LOC: M PLALAB 12:41
PROVIDERS: ATTEND Surgery
DX: Z01.818 Encounter for other preprocedural examination (principal)

== ENCOUNTER 2021-03-13 08:35 | Day surgery (SDC) | payer MEDICARE, OTHER ==
[~2021-03-13] VITALS: Ht 152.4 cm; Wt 53.9 kg
[~2021-03-13 08:35] MED LIST changes: -CALCTAB89 PO; -D 50CAP2 PO; +HEPARIN SOD (PORCINE) 5000UNITS/ML 1ML VIAL/SYRINGE SQ ONE; -HYDR12.55 PO; -LETR2.5T2 PO; -LEXA1TAB2 PO; +LIDOCAINE 1% MDV 20ML VIAL SQ PRN; -LOSA100T45 PO; -LOVA20TA2 PO; +LR 1,000 ML IV ONE; +NS 1,000 ML IV ONE; -ROXI1TAB2 PO; -VITAD400CA PO; +ceFAZolin SOD 2 GM in IV 1 EA IV ONE
[2021-03-13 09:40] LABS: INR 1.08; PROTHROMBIN TIME 14.4 SECONDS (12.7-14.5)
[2021-03-13] MEDS ORDERED: fentaNYL 100 MCG/2 ML INJECTION As Ordered ONE ×2 (12:54→15:24)
[2021-03-13] MEDS ORDERED: propofoL 200 MG/20 ML VIAL As Ordered ONE (12:55)
[2021-03-13] MEDS ORDERED: ROCURONIUM BROMIDE 50 MG/5 ML VIAL As Ordered ONE (12:55)
[2021-03-13] MEDS ORDERED: LIDOCAINE 2% 100MG/5ML SDV (FOR ANES.) As Ordered ONE (12:55)
[2021-03-13] MEDS ORDERED: METHYLENE BLUE 0.5% (5MG/ML) 10 ML AMP (PROVAYBLUE) As Ordered ONE (13:19)
[2021-03-13] MEDS ORDERED: LIDOCAINE 1% SDV 30ML VIAL As Ordered ONE (13:19)
[2021-03-13] MEDS ORDERED: BUPIVACAINE HCL 0.25% 30ML VIAL As Ordered ONE (13:19)
[2021-03-13] MEDS ORDERED: ACETAMINOPHEN 1000MG 100ML IV BTL (OFIRMEV) (J0131 PER 10MG) As Ordered ONE (14:46)
[2021-03-13] MEDS ORDERED: dexameTHASONE 4 MG/ML 1ML VIAL (J1100 PER 1MG) As Ordered ONE ×2 (14:46→18:27)
[2021-03-13] MEDS ORDERED: SUCCINYLCHOLINE 100 MG/5 ML SYRINGE (J0330) As Ordered ONE (14:46)
[2021-03-13] MEDS ORDERED: PHENYLephrine 500MCG 5ML (100MCG/ML) SYRINGE As Ordered ONE (14:46)
[2021-03-13] MEDS ORDERED: ONDANSETRON 4MG/2ML VIAL As Ordered ONE (15:28)
[2021-03-13] MEDS ORDERED: ePHEDrine SULFATE 25 MG/5 ML(5MG/ML) SYRINGE As Ordered ONE (15:38)
[2021-03-13] MEDS ORDERED: HYDROmorphone HCL 2MG/ML 1ML VIAL As Ordered ONE (16:29)
[2021-03-13] MEDS ORDERED: LABETALOL 100MG/20ML VIAL As Ordered ONE (17:26)
[2021-03-13] MEDS ORDERED: ONDANSETRON 4MG/2ML VIAL IV PRN (18:00)
[2021-03-13] MEDS ORDERED: fentaNYL 100 MCG/2 ML INJECTION IV PRN (18:00)
[2021-03-13] MEDS ORDERED: LR 1,000 ML IV SCH (18:00)
[2021-03-13] MEDS ORDERED: ROXI1TAB2 PO (18:19)
[2021-03-13 20:41] VITALS: BP 134/78
[2021-04-02] MEDS ORDERED: HYDR12.55 PO (13:13)
[2021-04-02] MEDS ORDERED: LOSA100T45 PO (13:13)
[2021-04-02] MEDS ORDERED: LETR2.5T2 PO (13:44)
[2021-04-06] MEDS ORDERED: VITAD400CA PO (09:15)
[2021-04-06] MEDS ORDERED: CALCTAB89 PO (09:15)
[2021-04-10] MEDS ORDERED: D 50CAP2 PO (08:35)
[2021-04-10] MEDS ORDERED: LEXA1TAB2 PO (08:35)
[2021-04-10] MEDS ORDERED: LOVA20TA2 PO (08:36)
[2021-04-26] MEDS ORDERED: LETR2.5T2 PO (13:33)
== END 2021-03-13 20:46 | disposition home or self-care (01) ==
LOC: M SDC 08:35
PROVIDERS: ATTEND Surgery
DX: D05.12 Intraductal carcinoma in situ of left breast (principal); R91.8 Other nonspecific abnormal finding of lung field; I10 Essential (primary) hypertension; E78.5 Hyperlipidemia, unspecified; Z95.2 Presence of prosthetic heart valve; K27.9 Peptic ulcer, site unspecified, unspecified as acute or chronic, without hemorrhage or perforation; I48.91 Unspecified atrial fibrillation; Z95.0 Presence of cardiac pacemaker; Z85.41 Personal history of malignant neoplasm of cervix uteri; Z87.891 Personal history of nicotine dependence; Z79.899 Other long term (current) drug therapy; Z79.01 Long term (current) use of anticoagulants; Z91.030 Bee allergy status
CPT/HCPCS: 19125; 36415; 38525; 76942; 78195; 85610; 86850; 86900; 86901; 88305; 88307; J0131; J0330; J0690; J1100; J1170; J1644; J2370; J2405; J3010; Q9968

== ENCOUNTER → 2021-04-09 | Outpatient (CLI) | payer MEDICARE, OTHER ==
[~2021-04-09] MED LIST changes: +CALCTAB89 PO; +D 50CAP2 PO; -HEPARIN SOD (PORCINE) 5000UNITS/ML 1ML VIAL/SYRINGE SQ ONE; +HYDR12.55 PO; +LETR2.5T2 PO; +LEXA1TAB2 PO; -LIDOCAINE 1% MDV 20ML VIAL SQ PRN; +LOSA100T45 PO; +LOVA20TA2 PO; -LR 1,000 ML IV ONE; -NS 1,000 ML IV ONE; +ROXI1TAB2 PO; +VITAD400CA PO; -ceFAZolin SOD 2 GM in IV 1 EA IV ONE
[2021-04-09 13:13] LABS: PLATELET COUNT, AUTOMATED 192 10^3/uL (150-450)
[2021-04-09 13:29] LABS: INR 1.22; PROTHROMBIN TIME 15.8 SECONDS (12.7-14.5)
[2021-04-09 13:30] LABS: PARTIAL THROMBOPLASTIN TIME 30.5 SECONDS (25.9-37.0)
== END ==
LOC: M PLALAB 09:41
PROVIDERS: ATTEND Internal Medicine Pulmonary Disease
DX: R91.8 Other nonspecific abnormal finding of lung field (principal)

== ENCOUNTER → 2021-04-10 | Outpatient (CLI) | payer MEDICARE, OTHER ==
[~2021-04-10] MED LIST changes: +HOME MED LIST COMPLETE! XX SCH; +LIDOCAINE 1% MDV 20ML VIAL As Ordered ONE
[2021-04-10 12:00] VITALS: BP 122/72
== END ==
LOC: M IRPRO 08:15
PROVIDERS: ATTEND Internal Medicine Pulmonary Disease
DX: J98.11 Atelectasis (principal); I51.7 Cardiomegaly; J91.8 Pleural effusion in other conditions classified elsewhere; Z95.2 Presence of prosthetic heart valve; Z95.0 Presence of cardiac pacemaker

== ENCOUNTER → 2021-04-13 | Outpatient (CLI) | payer MEDICARE, OTHER ==
[~2021-04-13] MED LIST changes: -HOME MED LIST COMPLETE! XX SCH; -LIDOCAINE 1% MDV 20ML VIAL As Ordered ONE
== END ==
LOC: M PLALAB 13:22
PROVIDERS: ATTEND Obstetrics & Gynecology
DX: N83.201 Unspecified ovarian cyst, right side (principal)

== ENCOUNTER → 2021-04-26 | Outpatient (CLI) | payer MEDICARE, OTHER | LOC: M ONCR 10:15 | PROVIDERS: ATTEND General Practice | DX: C34.31 Malignant neoplasm of lower lobe, right bronchus or lung (principal); Z79.01 Long term (current) use of anticoagulants; Z79.899 Other long term (current) drug therapy; Z80.3 Family history of malignant neoplasm of breast; Z80.1 Family history of malignant neoplasm of trachea, bronchus and lung; Z85.3 Personal history of malignant neoplasm of breast; Z87.891 Personal history of nicotine dependence ==

== ENCOUNTER → 2021-04-30 | Outpatient (CLI) | payer MEDICARE, OTHER ==
[~2021-04-30] MED LIST changes: +ISOVUE-370 76% 100ML VIAL As Ordered ONE
== END ==
LOC: M RAD 17:14
PROVIDERS: ATTEND General Practice
DX: C34.31 Malignant neoplasm of lower lobe, right bronchus or lung (principal); Z91.030 Bee allergy status
CPT/HCPCS: 70460; Q9967

== ENCOUNTER → 2021-05-10 | Outpatient (CLI) | payer MEDICARE, OTHER ==
[~2021-05-10] MED LIST changes: -ISOVUE-370 76% 100ML VIAL As Ordered ONE; +LIDOCAINE 1% MDV 20ML VIAL As Ordered ONE; +METOPROLOL TART 25 MG TABLET PO ONE; +MIDAZOLAM INJ 2MG/2ML VIAL (J2250 PER 1MG) As Ordered ONE; +NS 1,000 ML IV SCH; +ceFAZolin 2 GM/D5W 50 ML IV BAG (J0690 PER 500MG) As Ordered ONE; +ceFAZolin SOD 2 GM in IV 1 EA IV ONE; +diphenhydrAMINE 50MG/ML VIAL (J1200) As Ordered ONE; +fentaNYL 100 MCG/2 ML INJECTION As Ordered ONE
[2021-05-10 14:22] VITALS: BP 203/103
[2021-05-10 14:55] VITALS: BP 167/85
== END ==
LOC: M IRPRO 10:28
PROVIDERS: ATTEND Internal Medicine Medical Oncology
DX: C50.912 Malignant neoplasm of unspecified site of left female breast (principal); Z79.01 Long term (current) use of anticoagulants; Z79.899 Other long term (current) drug therapy; Z91.030 Bee allergy status
CPT/HCPCS: 36561; 99152; 99153; C1769; C1788; C1894; J0690; J1642; J1644; J2250; J3010

== ENCOUNTER 2021-05-11 10:32 | Outpatient (RCR) | payer MEDICARE, OTHER ==
[~2021-05-11 10:32] MED LIST changes: -LIDOCAINE 1% MDV 20ML VIAL As Ordered ONE; -METOPROLOL TART 25 MG TABLET PO ONE; -MIDAZOLAM INJ 2MG/2ML VIAL (J2250 PER 1MG) As Ordered ONE; -NS 1,000 ML IV SCH; -ceFAZolin 2 GM/D5W 50 ML IV BAG (J0690 PER 500MG) As Ordered ONE; -ceFAZolin SOD 2 GM in IV 1 EA IV ONE; -diphenhydrAMINE 50MG/ML VIAL (J1200) As Ordered ONE; -fentaNYL 100 MCG/2 ML INJECTION As Ordered ONE
[2021-05-24] MEDS ORDERED: PROC10TA5 PO (11:36)
[2021-05-24] MEDS ORDERED: ONDA-84 PO (11:36)
== END 2021-05-21 ==
LOC: M ONCR 10:32
PROVIDERS: ATTEND General Practice
DX: C34.31 Malignant neoplasm of lower lobe, right bronchus or lung (principal)

== ENCOUNTER → 2021-05-29 | Outpatient (POV) | payer MEDICARE, OTHER ==
[~2021-05-29] VITALS: Ht 162.6 cm; Wt 53.1 kg
[~2021-05-29] MED LIST changes: +ONDA-84 PO; +PROC10TA5 PO
[2021-05-29 09:20] VITALS: BP 118/74
== END ==
LOC: M IRPOV 08:58
PROVIDERS: ATTEND Radiology Diagnostic Radiology
DX: Z45.2 Encounter for adjustment and management of vascular access device (principal); Z91.030 Bee allergy status

== ENCOUNTER → 2021-06-21 | Outpatient (RCR) | payer MEDICARE, OTHER | LOC: M ONCR 05-22 11:05 | PROVIDERS: ATTEND General Practice | DX: C34.31 Malignant neoplasm of lower lobe, right bronchus or lung (principal) ==

== ENCOUNTER 2021-07-02 11:00 | Outpatient (RCR) | payer MEDICARE, OTHER | END 2021-07-21 | LOC: M ONCR 11:00 | PROVIDERS: ATTEND General Practice | DX: C34.31 Malignant neoplasm of lower lobe, right bronchus or lung (principal) ==

== ENCOUNTER 2021-07-03 11:21 | Emergency (ER) | payer MEDICARE, OTHER ==
[~2021-07-03] VITALS: Ht 152.4 cm; Wt 54.1 kg
[2021-07-03] MEDS ORDERED: NS 1,620 ML in IV 1 EA IV ONE (11:50)
[2021-07-03 12:16] LABS: BASO % 1.7 % (0.0-1.0); EOS % 1.7 % (0.0-3.0); HEMATOCRIT 37.5 % (36.0-47.0); HEMOGLOBIN 12.1 g/dl (12.0-15.5); LYMPH # 0.3 10^3/uL (1.5-5.0); LYMPH % 16.2 % (24.0-44.0); MEAN CORPUSCULAR HEMOGLOBIN 31.1 pg (27.0-33.0); MEAN CORPUSCULAR HGB CONC 32.3 g/dl (32.0-36.5); MEAN CORPUSCULAR VOLUME 96.4 fl (80.0-96.0); MONO # 0.3 10^3/uL (0.0-0.8); MONO % 14.5 % (2.0-8.0); NEUTROPHILS # 1.2 10^3/uL (1.5-8.5); NEUTROPHILS % 65.3 % (36.0-66.0); PLATELET COUNT, AUTOMATED 185 10^3/uL (150-450); RED BLOOD COUNT 3.89 10^6/uL (4.00-5.40); WHITE BLOOD COUNT 1.8 10^3/uL (4.0-10.0)
[2021-07-03 12:27] LABS: INR 2.81; PROTHROMBIN TIME 29.9 SECONDS (12.7-14.5)
[2021-07-03 13:27] LABS: ALBUMIN 3.4 GM/DL (3.2-5.2); ALT/SGPT 37 U/L (12-78); AMYLASE 73 U/L (25-115); BILIRUBIN,DIRECT 0.3 MG/DL (0.0-0.2); BILIRUBIN,TOTAL 1.6 MG/DL (0.2-1.0); BLOOD UREA NITROGEN 23 MG/DL (7-18); C REACTIVE PROTEIN QUANTITATIV 0.64 MG/DL (0.00-0.30); CALCIUM LEVEL 8.5 MG/DL (8.8-10.2); CARBON DIOXIDE LEVEL 31 MEQ/L (21-32); CHLORIDE LEVEL 103 MEQ/L (98-107); CREATININE FOR GFR 0.89 MG/DL (0.55-1.30); GLOMERULAR FILTRATION RATE > 60.0 (>32); GLUCOSE, FASTING 100 MG/DL (70-100); POTASSIUM SERUM 4.9 MEQ/L (3.5-5.1); SODIUM LEVEL 137 MEQ/L (136-145); TOTAL PROTEIN 6.6 GM/DL (6.4-8.2)
[2021-07-03 13:29] LABS: CK-MB VALUE MASS < 1.0 NG/ML (<3.6); CPK CREATINE PHOSPHOKINASE 32 U/L (26-192); MB/CK RELATIVE INDEX 3.12 (< OR =4)
[2021-07-03 15:15] VITALS: BP 159/8
== END 2021-07-03 15:29 | disposition home or self-care (01) ==
LOC: M ED 11:21
DX: I95.9 Hypotension, unspecified (principal); I10 Essential (primary) hypertension; E78.5 Hyperlipidemia, unspecified; I48.91 Unspecified atrial fibrillation; Z91.030 Bee allergy status; Z95.4 Presence of other heart-valve replacement; Z79.899 Other long term (current) drug therapy; Z79.01 Long term (current) use of anticoagulants; Z87.891 Personal history of nicotine dependence

== ENCOUNTER → 2021-08-16 | Outpatient (CLI) | payer MEDICARE, OTHER ==
[2021-08-16 17:59] LABS: HEMATOCRIT 43.8 % (36.0-47.0); HEMOGLOBIN 13.5 g/dl (12.0-15.5); MEAN CORPUSCULAR HEMOGLOBIN 30.1 pg (27.0-33.0); MEAN CORPUSCULAR HGB CONC 30.8 g/dl (32.0-36.5); MEAN CORPUSCULAR VOLUME 97.8 fl (80.0-96.0); PLATELET COUNT, AUTOMATED 191 10^3/uL (150-450); RED BLOOD COUNT 4.48 10^6/uL (4.00-5.40); WHITE BLOOD COUNT 6.2 10^3/uL (4.0-10.0)
[2021-08-16 18:25] LABS: CALCIUM LEVEL 9.5 MG/DL (8.8-10.2); CREATININE FOR GFR 1.05 MG/DL (0.55-1.30); GLOMERULAR FILTRATION RATE 53.2 (>32); POTASSIUM SERUM 3.6 MEQ/L (3.5-5.1)
== END ==
LOC: M RAD 16:26
PROVIDERS: ATTEND Internal Medicine Cardiovascular Disease
DX: R06.00 Dyspnea, unspecified (principal); R91.8 Other nonspecific abnormal finding of lung field

== ENCOUNTER → 2021-09-04 | Outpatient (CLI) | payer MEDICARE, OTHER ==
[~2021-09-04] MED LIST changes: +PEPC1TAB5 PO; +PRED10TA2 PO; +PRED20TA PO
== END ==
LOC: M ONCR 10:11
PROVIDERS: ATTEND General Practice
DX: R06.02 Shortness of breath (principal); R05.9 Cough, unspecified; Z92.3 Personal history of irradiation

== ENCOUNTER → 2021-09-12 | Outpatient (CLI) | payer MEDICARE, OTHER ==
[~2021-09-12] MED LIST changes: +ISOVUE-370 76% 100ML VIAL As Ordered ONE
== END ==
LOC: M RAD 15:15
PROVIDERS: ATTEND General Practice
DX: C34.31 Malignant neoplasm of lower lobe, right bronchus or lung (principal)
CPT/HCPCS: 71260; Q9967

== ENCOUNTER → 2021-10-02 | Outpatient (CLI) | payer MEDICARE, OTHER ==
[~2021-10-02] MED LIST changes: +CALCCAP4 PO; -ISOVUE-370 76% 100ML VIAL As Ordered ONE
== END ==
LOC: M ONCR 09:06
PROVIDERS: ATTEND General Practice
DX: C34.31 Malignant neoplasm of lower lobe, right bronchus or lung (principal); J84.89 Other specified interstitial pulmonary diseases; C50.811 Malignant neoplasm of overlapping sites of right female breast; R91.8 Other nonspecific abnormal finding of lung field; R53.83 Other fatigue; Z79.01 Long term (current) use of anticoagulants; Z79.899 Other long term (current) drug therapy; Z79.811 Long term (current) use of aromatase inhibitors; Z87.891 Personal history of nicotine dependence; Z91.81 History of falling; Z92.21 Personal history of antineoplastic chemotherapy; Z92.3 Personal history of irradiation; Z91.030 Bee allergy status; Z99.89 Dependence on other enabling machines and devices

== ENCOUNTER 2021-10-05 16:10 | Inpatient (IN) | payer MEDICARE, OTHER ==
[~2021-10-05] VITALS: Ht 152.4 cm; Wt 51.4 kg
[~2021-10-05 16:10] MED LIST changes: -CALCCAP4 PO
[2021-10-05] MEDS ORDERED: IMMUNE GLOBULIN 10% 0 GM in IV 1 EA IV SCH (18:20)
[2021-10-05 18:34] VITALS: BP 133/92
[2021-10-05 18:34] LABS: VENOUS BASE EXCESS -0.4 (-2.0-2.0); VENOUS HCO3 26.6 MEQ/L (23.0-27.0); VENOUS O2 SATURATION 39.1 % (60.0-80.0); VENOUS PARTIAL PRESSURE O2 25.2 mmHg (30.0-50.0); VENOUS PH 7.319 UNITS (7.330-7.430); VENOUS STANDARD HCO3 22.8 MEQ/L; VENOUS TOTAL CO2 28.3 MEQ/L (24.0-28.0)
[2021-10-05 18:35] LABS: HEMATOCRIT 42.6 % (36.0-47.0); HEMOGLOBIN 13.2 g/dl (12.0-15.5); MEAN CORPUSCULAR HEMOGLOBIN 29.1 pg (27.0-33.0); PLATELET COUNT, AUTOMATED 321 10^3/uL (150-450); RED BLOOD COUNT 4.53 10^6/uL (4.00-5.40); WHITE BLOOD COUNT 6.4 10^3/uL (4.0-10.0)
[2021-10-05] MEDS ORDERED: LEVALBUTEROL 1.25 MG/0.5 ML CONCENTRATE NEB INH PRN (19:00)
[2021-10-05] MEDS ORDERED: CEPACOL LOZENGE PO PRN (19:00)
[2021-10-05] MEDS ORDERED: BENZONATATE 100MG CAPSULE PO PRN (19:00)
[2021-10-05] MEDS ORDERED: DEXTROMETHORPHAN 60MG/10ML SUSP 90ML BTL(DELSYM) PO PRN (19:10)
[2021-10-05] MEDS ORDERED: LEXA1TAB PO (19:17)
[2021-10-05] MEDS ORDERED: CALCCAP4 PO (19:17)
[2021-10-05] MEDS ORDERED: PRED20TA PO (19:17)
[2021-10-05] MEDS ORDERED: HOME MED LIST COMPLETE! XX SCH (19:20)
[2021-10-05 19:21] LABS: ALBUMIN 3.3 GM/DL (3.2-5.2); ALT/SGPT 25 U/L (12-78); BILIRUBIN,TOTAL 0.6 MG/DL (0.2-1.0); BLOOD UREA NITROGEN 25 MG/DL (7-18); CALCIUM LEVEL 9.8 MG/DL (8.8-10.2); CARBON DIOXIDE LEVEL 27 MEQ/L (21-32); CHLORIDE LEVEL 104 MEQ/L (98-107); CREATININE FOR GFR 0.88 MG/DL (0.55-1.30); GLOMERULAR FILTRATION RATE > 60.0 (>32); GLUCOSE, FASTING 170 MG/DL (70-100); POTASSIUM SERUM 4.5 MEQ/L (3.5-5.1); SODIUM LEVEL 140 MEQ/L (136-145); TOTAL PROTEIN 7.2 GM/DL (6.4-8.2)
[2021-10-05] MEDS: LEVALBUTEROL 1.25 MG/0.5 ML CONCENTRATE NEB INH SCH (19:44)
[2021-10-05] MEDS: IPRATROPIUM 0.02% SOLN 0.5MG 2.5ML NEB INH SCH (19:44)
[2021-10-05] MEDS ORDERED: NS 1,000 ML IV SCH (19:55)
[2021-10-05 19:57] LABS: PARTIAL THROMBOPLASTIN TIME 48.6 SECONDS (25.9-37.0)
[2021-10-05 20:00] VITALS: BP 151/92
[2021-10-05 20:04] LABS: PROTHROMBIN TIME 94.2 SECONDS (12.7-14.5)
[2021-10-05 20:10] LABS: INR 12.62
[2021-10-05] MEDS: SIMVASTATIN 10 MG TAB PO SCH (20:21)
[2021-10-05] MEDS ORDERED: METOPROLOL TART 25 MG TABLET PO SCH (21:00)
[2021-10-05] MEDS ORDERED: PHYTONADIONE 5 MG TAB PO ONE (21:00)
[2021-10-05] MEDS: cefTRIAXone SOD 1 GM in D5W MINI-BAG PLUS 50 ML IV SCH (21:15)
[2021-10-05] MEDS: DOXYCYCLINE HYCLATE 100MG TABLET PO SCH (21:15)
[2021-10-05] MEDS: dexameTHASONE 4 MG/ML 1ML VIAL (J1100 PER 1MG) IV SCH (21:15)
[2021-10-05] MEDS ORDERED: PHYTONADIONE 2.5 MG **1/2 TAB PO ONE (22:00)
[2021-10-05 22:16] VITALS: BP 163/85
[2021-10-05] MEDS: IMMUNE GLOBULIN 10% 5 GM in IV 1 EA IV SCH (22:19)
[2021-10-05 22:55] VITALS: BP 158/87
[2021-10-05 23:25] VITALS: BP 172/92
[2021-10-06] VITALS (15 sets, daily range): BP systolic 134–174; BP diastolic 72–94
[2021-10-06] MEDS: IMMUNE GLOBULIN 10% 20 GM in IV 1 EA IV SCH ×2 (00:23→23:22)
[2021-10-06] MEDS ORDERED: hydrALAZINE 20MG/ML 1ML VIAL (J0360 PER 20MG) IV ONE (01:00)
[2021-10-06] MEDS ORDERED: METOPROLOL 5 MG/5 ML VIAL IV ONE (02:00)
[2021-10-06] MEDS: dexameTHASONE 4 MG/ML 1ML VIAL (J1100 PER 1MG) IV SCH ×4 (02:18→20:32)
[2021-10-06] MEDS: LEVALBUTEROL 1.25 MG/0.5 ML CONCENTRATE NEB INH SCH ×4 (02:26→19:57)
[2021-10-06] MEDS: IPRATROPIUM 0.02% SOLN 0.5MG 2.5ML NEB INH SCH ×4 (02:26→19:57)
[2021-10-06] MEDS: METOPROLOL TART 50 MG TAB PO SCH ×2 (06:14→20:33)
[2021-10-06 06:50] LABS: BASO % 0.2 % (0.0-1.0); HEMATOCRIT 41.5 % (36.0-47.0); HEMOGLOBIN 12.8 g/dl (12.0-15.5); LYMPH # 0.3 10^3/uL (1.5-5.0); LYMPH % 6.7 % (24.0-44.0); MEAN CORPUSCULAR HEMOGLOBIN 29.2 pg (27.0-33.0); MEAN CORPUSCULAR HGB CONC 30.8 g/dl (32.0-36.5); MEAN CORPUSCULAR VOLUME 94.5 fl (80.0-96.0); MONO # 0.3 10^3/uL (0.0-0.8); MONO % 6.3 % (2.0-8.0); NEUTROPHILS # 4.3 10^3/uL (1.5-8.5); NEUTROPHILS % 86.2 % (36.0-66.0); PLATELET COUNT, AUTOMATED 251 10^3/uL (150-450); RED BLOOD COUNT 4.39 10^6/uL (4.00-5.40); WHITE BLOOD COUNT 4.9 10^3/uL (4.0-10.0)
[2021-10-06 07:02] LABS: INR 4.3; PROTHROMBIN TIME 41.4 SECONDS (12.7-14.5)
[2021-10-06 07:16] LABS: BLOOD UREA NITROGEN 19 MG/DL (7-18); CALCIUM LEVEL 9.5 MG/DL (8.8-10.2); CARBON DIOXIDE LEVEL 24 MEQ/L (21-32); CHLORIDE LEVEL 107 MEQ/L (98-107); CREATININE FOR GFR 0.76 MG/DL (0.55-1.30); GLOMERULAR FILTRATION RATE > 60.0 (>32); GLUCOSE, FASTING 116 MG/DL (70-100); MAGNESIUM LEVEL 2.1 MG/DL (1.8-2.4); POTASSIUM SERUM 4.2 MEQ/L (3.5-5.1); SODIUM LEVEL 137 MEQ/L (136-145)
[2021-10-06] MEDS ORDERED: CALCIUM/VITAMIN D 500 MG TAB PO SCH (09:00)
[2021-10-06] MEDS: DOXYCYCLINE HYCLATE 100MG TABLET PO SCH ×2 (09:18→20:33)
[2021-10-06] MEDS: LETROZOLE 2.5 MG TAB PO SCH (09:18)
[2021-10-06] MEDS: LOSARTAN 50MG TABLET PO SCH (09:19)
[2021-10-06] MEDS: ESCITALOPRAM OXALATE 10 MG TAB (LEXAPRO) PO SCH (09:19)
[2021-10-06] MEDS: guaiFENesin ER 600 MG TAB PO SCH ×2 (10:30→20:33)
[2021-10-06] MEDS ORDERED: ISOVUE-370 76% 100ML VIAL As Ordered ONE (11:30)
[2021-10-06] MEDS ORDERED: ACETAMINOPHEN 325 MG TAB PO PRN (14:50)
[2021-10-06 15:46] LABS: THYROID STIMULATING HORMONE 0.715 uIU/ML (0.358-3.740)
[2021-10-06] MEDS: AMIODARONE 200 MG TAB (PACERONE) PO SCH ×2 (16:31→20:32)
[2021-10-06] MEDS: FAMOTIDINE 20MG/2ML VIAL IVP SCH (20:32)
[2021-10-06] MEDS: SIMVASTATIN 10 MG TAB PO SCH (20:32)
[2021-10-06] MEDS: cefTRIAXone SOD 1 GM in D5W MINI-BAG PLUS 50 ML IV SCH (20:32)
[2021-10-06] MEDS: IMMUNE GLOBULIN 10% 5 GM in IV 1 EA IV SCH (21:43)
[2021-10-07] VITALS (12 sets, daily range): BP systolic 128–178; BP diastolic 65–100
[2021-10-07] MEDS: dexameTHASONE 4 MG/ML 1ML VIAL (J1100 PER 1MG) IV SCH ×2 (01:11→08:28)
[2021-10-07] MEDS: LEVALBUTEROL 1.25 MG/0.5 ML CONCENTRATE NEB INH SCH ×4 (01:23→19:36)
[2021-10-07] MEDS: IPRATROPIUM 0.02% SOLN 0.5MG 2.5ML NEB INH SCH ×4 (01:23→19:36)
[2021-10-07 05:57] LABS: HEMATOCRIT 35.7 % (36.0-47.0); HEMOGLOBIN 11.2 g/dl (12.0-15.5); LYMPH # 0.3 10^3/uL (1.5-5.0); LYMPH % 5.4 % (24.0-44.0); MEAN CORPUSCULAR HEMOGLOBIN 29.4 pg (27.0-33.0); MEAN CORPUSCULAR HGB CONC 31.4 g/dl (32.0-36.5); MEAN CORPUSCULAR VOLUME 93.7 fl (80.0-96.0); MONO # 0.2 10^3/uL (0.0-0.8); MONO % 3.2 % (2.0-8.0); NEUTROPHILS # 5.4 10^3/uL (1.5-8.5); NEUTROPHILS % 90.6 % (36.0-66.0); PLATELET COUNT, AUTOMATED 248 10^3/uL (150-450); RED BLOOD COUNT 3.81 10^6/uL (4.00-5.40); WHITE BLOOD COUNT 5.9 10^3/uL (4.0-10.0)
[2021-10-07 06:10] LABS: INR 1.56; PROTHROMBIN TIME 19.1 SECONDS (12.7-14.5)
[2021-10-07 06:21] LABS: BLOOD UREA NITROGEN 21 MG/DL (7-18); CALCIUM LEVEL 9.1 MG/DL (8.8-10.2); CARBON DIOXIDE LEVEL 24 MEQ/L (21-32); CHLORIDE LEVEL 107 MEQ/L (98-107); CREATININE FOR GFR 0.79 MG/DL (0.55-1.30); GLOMERULAR FILTRATION RATE > 60.0 (>32); GLUCOSE, FASTING 119 MG/DL (70-100); MAGNESIUM LEVEL 1.9 MG/DL (1.8-2.4); POTASSIUM SERUM 4.1 MEQ/L (3.5-5.1); SODIUM LEVEL 138 MEQ/L (136-145)
[2021-10-07] MEDS: AMIODARONE 200 MG TAB (PACERONE) PO SCH ×3 (08:28→20:10)
[2021-10-07] MEDS: guaiFENesin ER 600 MG TAB PO SCH ×2 (08:28→20:09)
[2021-10-07] MEDS: DOXYCYCLINE HYCLATE 100MG TABLET PO SCH ×2 (08:29→20:10)
[2021-10-07] MEDS: METOPROLOL TART 50 MG TAB PO SCH ×2 (08:29→20:14)
[2021-10-07] MEDS: LETROZOLE 2.5 MG TAB PO SCH (08:29)
[2021-10-07] MEDS: ESCITALOPRAM OXALATE 10 MG TAB (LEXAPRO) PO SCH (08:29)
[2021-10-07] MEDS: LOSARTAN 50MG TABLET PO SCH (08:29)
[2021-10-07] MEDS ORDERED: ENOXAPARIN 40MG/0.4ML SYRINGE (J1650 PER 10MG) SC SCH (09:00)
[2021-10-07] MEDS: predniSONE 20 MG TAB PO SCH (10:53)
[2021-10-07] MEDS: WARFARIN SOD 3MG TAB PO SCH (16:28)
[2021-10-07] MEDS: FAMOTIDINE 20MG/2ML VIAL IVP SCH (20:08)
[2021-10-07] MEDS: CEFDINIR 300 MG CAP (OMNICEF) PO SCH (20:09)
[2021-10-07] MEDS: SIMVASTATIN 10 MG TAB PO SCH (20:10)
[2021-10-07] MEDS ORDERED: hydrALAZINE 20MG/ML 1ML VIAL (J0360 PER 20MG) IV ONE (22:00)
[2021-10-07] MEDS: IMMUNE GLOBULIN 10% 5 GM in IV 1 EA IV SCH (22:23)
[2021-10-07] MEDS: IMMUNE GLOBULIN 10% 20 GM in IV 1 EA IV SCH (23:13)
[2021-10-08] VITALS (10 sets, daily range): BP systolic 145–184; BP diastolic 78–93
[2021-10-08] MEDS: LEVALBUTEROL 1.25 MG/0.5 ML CONCENTRATE NEB INH SCH ×4 (02:08→19:53)
[2021-10-08] MEDS: IPRATROPIUM 0.02% SOLN 0.5MG 2.5ML NEB INH SCH ×4 (02:09→19:53)
[2021-10-08 06:36] LABS: BASO % 0.2 % (0.0-1.0); HEMATOCRIT 35.4 % (36.0-47.0); HEMOGLOBIN 11.1 g/dl (12.0-15.5); LYMPH # 0.4 10^3/uL (1.5-5.0); LYMPH % 6.8 % (24.0-44.0); MEAN CORPUSCULAR HEMOGLOBIN 28.7 pg (27.0-33.0); MEAN CORPUSCULAR HGB CONC 31.4 g/dl (32.0-36.5); MEAN CORPUSCULAR VOLUME 91.5 fl (80.0-96.0); MONO % 15.2 % (2.0-8.0); NEUTROPHILS # 4.9 10^3/uL (1.5-8.5); NEUTROPHILS % 76.6 % (36.0-66.0); PLATELET COUNT, AUTOMATED 261 10^3/uL (150-450); RED BLOOD COUNT 3.87 10^6/uL (4.00-5.40); WHITE BLOOD COUNT 6.5 10^3/uL (4.0-10.0)
[2021-10-08 06:57] LABS: INR 1.63; PROTHROMBIN TIME 19.7 SECONDS (12.7-14.5)
[2021-10-08 07:02] LABS: ALBUMIN 2.6 GM/DL (3.2-5.2); ALT/SGPT 23 U/L (12-78); BILIRUBIN,TOTAL 0.5 MG/DL (0.2-1.0); BLOOD UREA NITROGEN 23 MG/DL (7-18); CARBON DIOXIDE LEVEL 27 MEQ/L (21-32); CHLORIDE LEVEL 105 MEQ/L (98-107); CREATININE FOR GFR 0.78 MG/DL (0.55-1.30); GLOMERULAR FILTRATION RATE > 60.0 (>32); GLUCOSE, FASTING 97 MG/DL (70-100); MAGNESIUM LEVEL 1.8 MG/DL (1.8-2.4); PHOSPHORUS LEVEL 2.7 MG/DL (2.5-4.9); POTASSIUM SERUM 4.2 MEQ/L (3.5-5.1); SODIUM LEVEL 138 MEQ/L (136-145); TOTAL PROTEIN 7.9 GM/DL (6.4-8.2)
[2021-10-08] MEDS: LOSARTAN 50MG TABLET PO SCH (07:47)
[2021-10-08] MEDS: ESCITALOPRAM OXALATE 10 MG TAB (LEXAPRO) PO SCH (07:47)
[2021-10-08] MEDS: AMIODARONE 200 MG TAB (PACERONE) PO SCH ×3 (07:48→20:38)
[2021-10-08] MEDS: METOPROLOL TART 50 MG TAB PO SCH ×2 (07:48→20:39)
[2021-10-08] MEDS: predniSONE 20 MG TAB PO SCH (07:49)
[2021-10-08] MEDS: DOXYCYCLINE HYCLATE 100MG TABLET PO SCH ×2 (07:49→20:39)
[2021-10-08] MEDS: LETROZOLE 2.5 MG TAB PO SCH (07:50)
[2021-10-08] MEDS: CEFDINIR 300 MG CAP (OMNICEF) PO SCH ×2 (07:50→20:38)
[2021-10-08] MEDS: guaiFENesin ER 600 MG TAB PO SCH ×2 (07:50→20:40)
[2021-10-08] MEDS: WARFARIN SOD 3MG TAB PO SCH (16:15)
[2021-10-08] MEDS: SIMVASTATIN 10 MG TAB PO SCH (20:38)
[2021-10-09 00:03] VITALS: BP 178/84
[2021-10-09] MEDS ORDERED: hydrALAZINE 20MG/ML 1ML VIAL (J0360 PER 20MG) IV ONE (00:50)
[2021-10-09] MEDS: LEVALBUTEROL 1.25 MG/0.5 ML CONCENTRATE NEB INH SCH ×2 (01:19→07:55)
[2021-10-09] MEDS: IPRATROPIUM 0.02% SOLN 0.5MG 2.5ML NEB INH SCH ×2 (01:19→07:55)
[2021-10-09 02:00] VITALS: BP 142/70
[2021-10-09 04:00] VITALS: BP 160/84
[2021-10-09 06:24] LABS: BASO % 0.2 % (0.0-1.0); EOS % 0.2 % (0.0-3.0); HEMATOCRIT 36.4 % (36.0-47.0); HEMOGLOBIN 11.7 g/dl (12.0-15.5); LYMPH # 0.7 10^3/uL (1.5-5.0); LYMPH % 10.6 % (24.0-44.0); MEAN CORPUSCULAR HEMOGLOBIN 29.3 pg (27.0-33.0); MEAN CORPUSCULAR HGB CONC 32.1 g/dl (32.0-36.5); MEAN CORPUSCULAR VOLUME 91.2 fl (80.0-96.0); MONO # 1.2 10^3/uL (0.0-0.8); MONO % 18.5 % (2.0-8.0); NEUTROPHILS # 4.5 10^3/uL (1.5-8.5); NEUTROPHILS % 69.6 % (36.0-66.0); PLATELET COUNT, AUTOMATED 244 10^3/uL (150-450); RED BLOOD COUNT 3.99 10^6/uL (4.00-5.40); WHITE BLOOD COUNT 6.4 10^3/uL (4.0-10.0)
[2021-10-09 06:37] LABS: INR 2.85; PROTHROMBIN TIME 30.2 SECONDS (12.7-14.5)
[2021-10-09 06:49] LABS: ALBUMIN 2.4 GM/DL (3.2-5.2); ALT/SGPT 26 U/L (12-78); BILIRUBIN,TOTAL 0.6 MG/DL (0.2-1.0); BLOOD UREA NITROGEN 22 MG/DL (7-18); CALCIUM LEVEL 9.3 MG/DL (8.8-10.2); CARBON DIOXIDE LEVEL 27 MEQ/L (21-32); CHLORIDE LEVEL 105 MEQ/L (98-107); CREATININE FOR GFR 0.74 MG/DL (0.55-1.30); GLOMERULAR FILTRATION RATE > 60.0 (>32); GLUCOSE, FASTING 84 MG/DL (70-100); MAGNESIUM LEVEL 1.7 MG/DL (1.8-2.4); PHOSPHORUS LEVEL 2.5 MG/DL (2.5-4.9); SODIUM LEVEL 139 MEQ/L (136-145); TOTAL PROTEIN 7.2 GM/DL (6.4-8.2)
[2021-10-09] MEDS: DOXYCYCLINE HYCLATE 100MG TABLET PO SCH (08:33)
[2021-10-09] MEDS: predniSONE 20 MG TAB PO SCH (08:33)
[2021-10-09] MEDS: ESCITALOPRAM OXALATE 10 MG TAB (LEXAPRO) PO SCH (08:33)
[2021-10-09] MEDS: CEFDINIR 300 MG CAP (OMNICEF) PO SCH (08:33)
[2021-10-09] MEDS: LOSARTAN 50MG TABLET PO SCH (08:33)
[2021-10-09 08:34] VITALS: BP 160/84
[2021-10-09] MEDS: AMIODARONE 200 MG TAB (PACERONE) PO SCH (08:34)
[2021-10-09] MEDS: METOPROLOL TART 50 MG TAB PO SCH (08:34)
[2021-10-09] MEDS: guaiFENesin ER 600 MG TAB PO SCH (08:34)
[2021-10-09] MEDS: LETROZOLE 2.5 MG TAB PO SCH (08:34)
[2021-10-09 08:40] VITALS: BP 117/70
[2021-10-09] MEDS ORDERED: PRED20TA PO (08:42)
[2021-10-09] MEDS ORDERED: LOPR1TAB6 PO (08:42)
[2021-10-09] MEDS ORDERED: DOXY100T PO (08:42)
[2021-10-09] MEDS ORDERED: AMIO200T49 PO (08:42)
[2021-10-09] MEDS ORDERED: CEFD300CAP PO (08:42)
[2021-10-09] MEDS ORDERED: MUCI600T31 PO (08:42)
== END 2021-10-09 12:38 | disposition home health service (06) | DRG 205 ==
LOC: M PCU 17:50
PROVIDERS: ADMIT Internal Medicine; ATTEND Internal Medicine
PROC: B246ZZZ Ultrasonography of Right and Left Heart (ICD-10-PCS; principal; 2021-10-06)
DX: J70.0 Acute pulmonary manifestations due to radiation (principal); J96.01 Acute respiratory failure with hypoxia; C34.31 Malignant neoplasm of lower lobe, right bronchus or lung; I47.2 Ventricular tachycardia; I48.91 Unspecified atrial fibrillation; E78.5 Hyperlipidemia, unspecified; I10 Essential (primary) hypertension; Z79.01 Long term (current) use of anticoagulants; Z79.811 Long term (current) use of aromatase inhibitors; Z79.52 Long term (current) use of systemic steroids; Z79.899 Other long term (current) drug therapy; Z92.21 Personal history of antineoplastic chemotherapy; Z92.3 Personal history of irradiation; Z91.030 Bee allergy status; Z85.41 Personal history of malignant neoplasm of cervix uteri; Z95.0 Presence of cardiac pacemaker; Z95.2 Presence of prosthetic heart valve; Z90.49 Acquired absence of other specified parts of digestive tract; Z66 Do not resuscitate; T45.515A Adverse effect of anticoagulants, initial encounter; F32.A Depression, unspecified; C50.919 Malignant neoplasm of unspecified site of unspecified female breast

== ENCOUNTER → 2021-10-18 | Outpatient (CLI) | payer MEDICARE, OTHER ==
[~2021-10-18] MED LIST changes: +AMIO200T49 PO; +CALCCAP4 PO; +CEFD300CAP PO; +DOXY100T PO; +LOPR1TAB6 PO; +MUCI600T31 PO
== END ==
LOC: M ONCR 10:57
PROVIDERS: ATTEND General Practice
DX: J70.0 Acute pulmonary manifestations due to radiation (principal); R53.83 Other fatigue; Z92.3 Personal history of irradiation; Z92.25 Personal history of immunosuppression therapy

== ENCOUNTER → 2021-10-25 | Outpatient (CLI) | payer MEDICARE, OTHER | LOC: M WUC 11:07 | PROVIDERS: ATTEND Internal Medicine | DX: J84.9 Interstitial pulmonary disease, unspecified (principal); I51.7 Cardiomegaly; Z95.1 Presence of aortocoronary bypass graft; Z95.0 Presence of cardiac pacemaker ==

== ENCOUNTER → 2021-11-20 | Outpatient (CLI) | payer MEDICARE, OTHER ==
[~2021-11-20] MED LIST changes: +MORP1SOL PO
== END ==
LOC: M WHC 10:29
PROVIDERS: ATTEND Nurse Practitioner Women's Health
DX: Z12.31 Encounter for screening mammogram for malignant neoplasm of breast (principal); Z85.3 Personal history of malignant neoplasm of breast
CPT/HCPCS: 77066; G0279

== ENCOUNTER → 2021-11-22 | Outpatient (CLI) | payer MEDICARE, OTHER | LOC: M ONCR 11:00 | PROVIDERS: ATTEND General Practice | DX: C34.31 Malignant neoplasm of lower lobe, right bronchus or lung (principal); R91.1 Solitary pulmonary nodule; R06.09 Other forms of dyspnea; Z79.01 Long term (current) use of anticoagulants; Z79.52 Long term (current) use of systemic steroids; Z79.811 Long term (current) use of aromatase inhibitors; Z79.891 Long term (current) use of opiate analgesic; Z79.899 Other long term (current) drug therapy; Z85.3 Personal history of malignant neoplasm of breast; Z87.891 Personal history of nicotine dependence; Z91.030 Bee allergy status; Z92.21 Personal history of antineoplastic chemotherapy; Z92.25 Personal history of immunosuppression therapy; Z92.3 Personal history of irradiation ==

== ENCOUNTER → 2022-01-10 | Outpatient (CLI) | payer MEDICARE, OTHER | LOC: M ONCR 11:07 | PROVIDERS: ATTEND General Practice | DX: C34.31 Malignant neoplasm of lower lobe, right bronchus or lung (principal); C50.912 Malignant neoplasm of unspecified site of left female breast; R05.8 Other specified cough; R06.09 Other forms of dyspnea; Z79.01 Long term (current) use of anticoagulants; Z79.52 Long term (current) use of systemic steroids; Z79.811 Long term (current) use of aromatase inhibitors; Z79.891 Long term (current) use of opiate analgesic; Z79.899 Other long term (current) drug therapy; Z87.891 Personal history of nicotine dependence; Z91.030 Bee allergy status; Z92.21 Personal history of antineoplastic chemotherapy; Z92.3 Personal history of irradiation ==

== ENCOUNTER → 2022-01-16 | Outpatient (CLI) | payer MEDICARE, OTHER ==
[2022-01-16 18:01] LABS: ALBUMIN 3.4 GM/DL (3.2-5.2); CALCIUM LEVEL 9.6 MG/DL (8.8-10.2); CREATININE FOR GFR 1.02 MG/DL (0.55-1.30); POTASSIUM SERUM 4.7 MEQ/L (3.5-5.1); TOTAL PROTEIN 6.3 GM/DL (6.4-8.2)
== END ==
LOC: M LABDRWAD 13:12
PROVIDERS: ATTEND General Practice
DX: C34.31 Malignant neoplasm of lower lobe, right bronchus or lung (principal)

== ENCOUNTER → 2022-01-17 | Outpatient (CLI) | payer MEDICARE, OTHER | LOC: M RAD 16:51 | PROVIDERS: ATTEND General Practice | DX: C34.31 Malignant neoplasm of lower lobe, right bronchus or lung (principal); I70.0 Atherosclerosis of aorta; I25.10 Atherosclerotic heart disease of native coronary artery without angina pectoris; J84.9 Interstitial pulmonary disease, unspecified ==

== ENCOUNTER 2022-02-08 13:04 | Inpatient (IN) | payer MEDICARE, OTHER ==
[~2022-02-08] VITALS: Ht 152.4 cm; Wt 49.1 kg
[2022-02-08] MEDS ORDERED: MORP1SOL5 PO (13:19)
[2022-02-08] MEDS ORDERED: METO100T5 PO (13:19)
[2022-02-08] MEDS ORDERED: PRED10TA2 PO ×2 (13:19→18:47)
[2022-02-08 15:37] LABS: BASO % 0.1 % (0.0-1.0); EOS % 0.1 % (0.0-3.0); HEMATOCRIT 45.2 % (36.0-47.0); HEMOGLOBIN 13.9 g/dl (12.0-15.5); LYMPH # 0.3 10^3/uL (1.5-5.0); MEAN CORPUSCULAR HEMOGLOBIN 29.2 pg (27.0-33.0); MEAN CORPUSCULAR HGB CONC 30.8 g/dl (32.0-36.5); MONO # 0.5 10^3/uL (0.0-0.8); MONO % 6.1 % (2.0-8.0); NEUTROPHILS # 7.3 10^3/uL (1.5-8.5); NEUTROPHILS % 88.5 % (36.0-66.0); PLATELET COUNT, AUTOMATED 165 10^3/uL (150-450); RED BLOOD COUNT 4.76 10^6/uL (4.00-5.40); WHITE BLOOD COUNT 8.2 10^3/uL (4.0-10.0)
[2022-02-08 16:09] LABS: INR 2.53; PROTHROMBIN TIME 27.7 SECONDS (12.5-14.5)
[2022-02-08 16:14] LABS: ALBUMIN 3.3 G/DL (3.2-5.2); BILIRUBIN,DIRECT 0.2 MG/DL (<0.4); CALCIUM LEVEL 9.6 MG/DL (8.3-10.6); CREATININE FOR GFR 0.99 MG/DL (0.55-1.30); GLOMERULAR FILTRATION RATE 56.9 (>32); POTASSIUM SERUM 3.8 MMOL/L (3.5-5.1); THYROID STIMULATING HORMONE 7.496 uIU/ML (0.55-4.78); THYROXINE (T4) 3.9 UG/DL (4.5-10.9); TOTAL PROTEIN 5.7 G/DL (5.7-8.2)
[2022-02-08] MEDS ORDERED: NS 1,000 ML IV SCH (16:50)
[2022-02-08] MEDS ORDERED: IPRATROPIUM 0.5MG/ALBUTEROL 2.5MG INH SOL UD 3ML (DUONEB) NEB PRN (18:30)
[2022-02-08] MEDS ORDERED: LOVA10TA PO (18:47)
[2022-02-08] MEDS ORDERED: ONDA-84 PO (18:47)
[2022-02-08] MEDS ORDERED: HOME MED LIST COMPLETE! XX SCH (18:55)
[2022-02-08 20:21] LABS: INR 2.52; PROTHROMBIN TIME 27.6 SECONDS (12.5-14.5)
[2022-02-08] MEDS ORDERED: METOPROLOL TART 25 MG TABLET PO SCH (21:00)
[2022-02-08] MEDS ORDERED: WARFARIN SOD 3MG TAB PO SCH (21:00)
[2022-02-08] MEDS ORDERED: METOPROLOL TARTRATE 100MG TAB PO SCH (21:00)
[2022-02-08] MEDS: SIMVASTATIN 10 MG TAB PO SCH (21:32)
[2022-02-08] MEDS: WARFARIN SOD 3MG TAB PO SCH (21:32)
[2022-02-09] MEDS ORDERED: LOSARTAN 50MG TABLET PO ONE (06:00)
[2022-02-09 09:50] LABS: HEMATOCRIT 46.9 % (36.0-47.0); HEMOGLOBIN 14.5 g/dl (12.0-15.5); MEAN CORPUSCULAR HEMOGLOBIN 29.5 pg (27.0-33.0); MEAN CORPUSCULAR HGB CONC 30.9 g/dl (32.0-36.5); MEAN CORPUSCULAR VOLUME 95.5 fl (80.0-96.0); PLATELET COUNT, AUTOMATED 170 10^3/uL (150-450); RED BLOOD COUNT 4.91 10^6/uL (4.00-5.40); WHITE BLOOD COUNT 6.3 10^3/uL (4.0-10.0)
[2022-02-09 10:08] LABS: INR 2.76; PROTHROMBIN TIME 29.6 SECONDS (12.5-14.5)
[2022-02-09 10:11] LABS: BLOOD UREA NITROGEN 21 MG/DL (9-23); CALCIUM LEVEL 8.7 MG/DL (8.3-10.6); CARBON DIOXIDE LEVEL 32 MMOL/L (20-31); CHLORIDE LEVEL 102 MMOL/L (98-107); CREATININE FOR GFR 0.91 MG/DL (0.55-1.30); GLOMERULAR FILTRATION RATE > 60.0 (>32); GLUCOSE, FASTING 77 MG/DL (74-106); POTASSIUM SERUM 4.2 MMOL/L (3.5-5.1); SODIUM LEVEL 141 MMOL/L (136-145)
[2022-02-09] MEDS: cefTRIAXone SOD 2 GM in D5W MINI-BAG PLUS 50 ML IV SCH (10:11)
[2022-02-09] MEDS: ESCITALOPRAM OXALATE 10 MG TAB (LEXAPRO) PO SCH (10:20)
[2022-02-09] MEDS: predniSONE 10 MG TAB PO SCH (10:20)
[2022-02-09] MEDS: DOXYCYCLINE HYCLATE 100 MG in D5W MINI-BAG PLUS 100 ML IV SCH ×2 (10:49→21:13)
[2022-02-09] MEDS: METOPROLOL TARTRATE 100MG TAB PO SCH ×2 (11:39→21:13)
[2022-02-09 17:39] VITALS: BP 138/72
[2022-02-09] MEDS: WARFARIN SOD 3MG TAB PO SCH (19:09)
[2022-02-09 20:00] VITALS: BP 141/71
[2022-02-09] MEDS: SIMVASTATIN 10 MG TAB PO SCH (21:13)
[2022-02-10] VITALS (7 sets, daily range): BP systolic 150–218; BP diastolic 90–116
[2022-02-10] MEDS ORDERED: amLODIPine 5 MG TAB PO ONE (01:00)
[2022-02-10] MEDS ORDERED: cloNIDine 0.2 MG TAB PO ONE (05:00)
[2022-02-10 06:01] LABS: HEMATOCRIT 41.1 % (36.0-47.0); HEMOGLOBIN 12.9 g/dl (12.0-15.5); MEAN CORPUSCULAR HEMOGLOBIN 29.7 pg (27.0-33.0); MEAN CORPUSCULAR HGB CONC 31.4 g/dl (32.0-36.5); MEAN CORPUSCULAR VOLUME 94.7 fl (80.0-96.0); PLATELET COUNT, AUTOMATED 154 10^3/uL (150-450); RED BLOOD COUNT 4.34 10^6/uL (4.00-5.40); WHITE BLOOD COUNT 5.3 10^3/uL (4.0-10.0)
[2022-02-10 06:20] LABS: INR 4.12; PROTHROMBIN TIME 40.5 SECONDS (12.5-14.5)
[2022-02-10 06:59] LABS: BLOOD UREA NITROGEN 23 MG/DL (9-23); CALCIUM LEVEL 8.5 MG/DL (8.3-10.6); CARBON DIOXIDE LEVEL 26 MMOL/L (20-31); CHLORIDE LEVEL 107 MMOL/L (98-107); GLOMERULAR FILTRATION RATE > 60.0 (>32); GLUCOSE, FASTING 94 MG/DL (74-106); POTASSIUM SERUM 3.8 MMOL/L (3.5-5.1); SODIUM LEVEL 144 MMOL/L (136-145)
[2022-02-10] MEDS ORDERED: hydrALAZINE 20MG/ML 1ML VIAL (J0360 PER 20MG) IV PRN (08:00)
[2022-02-10] MEDS: cefTRIAXone SOD 2 GM in D5W MINI-BAG PLUS 50 ML IV SCH (08:51)
[2022-02-10] MEDS: predniSONE 10 MG TAB PO SCH (08:52)
[2022-02-10] MEDS: METOPROLOL TARTRATE 100MG TAB PO SCH (08:52)
[2022-02-10] MEDS: ESCITALOPRAM OXALATE 10 MG TAB (LEXAPRO) PO SCH (08:52)
[2022-02-10] MEDS ORDERED: DOXYCYCLINE HYCLATE 100MG TABLET PO SCH (09:00)
[2022-02-10] MEDS ORDERED: DOXY100C3 PO (10:06)
[2022-02-10] MEDS ORDERED: CEFD300C41 PO (10:06)
[2022-02-10] MEDS ORDERED: cefTRIAXone SOD 2 GM VIAL (J0696 PER 250MG) IM ONE (10:20)
[2022-02-10] MEDS ORDERED: LIDOCAINE 1% SDV 5ML VIAL DILUENT ONE (10:20)
== END 2022-02-10 14:21 | disposition home health service (06) | DRG 194 ==
LOC: M ED 13:04 → M ED INP 17:51 → ENRESERV 02-09 15:05 → M PCU 02-09 16:41
PROVIDERS: ADMIT Internal Medicine; ATTEND Internal Medicine
DX: J18.9 Pneumonia, unspecified organism (principal); G72.0 Drug-induced myopathy; I48.0 Paroxysmal atrial fibrillation; Z79.01 Long term (current) use of anticoagulants; Z95.2 Presence of prosthetic heart valve; I49.5 Sick sinus syndrome; Z95.0 Presence of cardiac pacemaker; I10 Essential (primary) hypertension; E78.5 Hyperlipidemia, unspecified; Z85.41 Personal history of malignant neoplasm of cervix uteri; Z85.3 Personal history of malignant neoplasm of breast; Z92.3 Personal history of irradiation; Z85.118 Personal history of other malignant neoplasm of bronchus and lung; Z92.21 Personal history of antineoplastic chemotherapy; Z87.891 Personal history of nicotine dependence; I95.1 Orthostatic hypotension; Z79.52 Long term (current) use of systemic steroids; F32.A Depression, unspecified; F41.9 Anxiety disorder, unspecified; E02 Subclinical iodine-deficiency hypothyroidism; Z66 Do not resuscitate; Z79.899 Other long term (current) drug therapy; Z91.030 Bee allergy status; Z20.822 Contact with and (suspected) exposure to COVID-19

== ENCOUNTER 2022-06-19 22:24 | Inpatient (IN) | payer MEDICARE, OTHER ==
[~2022-06-19] VITALS: Ht 152.4 cm; Wt 48.2 kg
[~2022-06-19 22:24] MED LIST changes: +CEFD300C41 PO; +DOXY100C3 PO; +METO100T5 PO; +MORP1SOL5 PO
[2022-06-19] MEDS ORDERED: IPRATROPIUM 0.5MG/ALBUTEROL 2.5MG INH SOL UD 3ML (DUONEB) NEB ONE ×2 (22:35)
[2022-06-19] MEDS ORDERED: ALBUTEROL SULFATE 2.5MG/0.5ML INH NEB SOLN NEB ONE (22:35)
[2022-06-19] MEDS ORDERED: methylPREDNISolone 125MG 2ML VIAL IV ONE (22:45)
[2022-06-19 22:59] LABS: BASO # 0.1 10^3/uL (0.0-0.2); BASO % 0.9 % (0.0-1.0); EOS # 0.1 10^3/uL (0.0-0.5); EOS % 0.7 % (0.0-3.0); HEMOGLOBIN 12.3 g/dl (12.0-15.5); LYMPH # 4.1 10^3/uL (1.5-5.0); LYMPH % 32.3 % (24.0-44.0); MEAN CORPUSCULAR HEMOGLOBIN 29.7 pg (27.0-33.0); MONO # 1.3 10^3/uL (0.0-0.8); MONO % 10.2 % (2.0-8.0); NEUTROPHILS # 6.5 10^3/uL (1.5-8.5); NEUTROPHILS % 52.2 % (36.0-66.0); PLATELET COUNT, AUTOMATED 224 10^3/uL (150-450); RED BLOOD COUNT 4.14 10^6/uL (4.00-5.40); WHITE BLOOD COUNT 12.5 10^3/uL (4.0-10.0)
[2022-06-19] MEDS ORDERED: ACETAMINOPHEN 1000MG 100ML IV BAG IV ONE (23:05)
[2022-06-19 23:28] LABS: AMYLASE 137 U/L (30-118)
[2022-06-19] MEDS ORDERED: cefTRIAXone SOD 1 GM in D5W MINI-BAG PLUS 50 ML IV ONE (23:30)
[2022-06-19] MEDS ORDERED: NS 1,490 ML in IV 1 EA IV ONE (23:30)
[2022-06-19] MEDS ORDERED: AZITHROMYCIN INJ 500 MG, VIAL MATE ADAPTER 1 EACH in NS 250 ML IV ONE (23:30)
[2022-06-19 23:31] LABS: INR 1.46; PARTIAL THROMBOPLASTIN TIME 32.7 SECONDS (24.8-34.2)
[2022-06-19 23:32] LABS: ALBUMIN 3.1 G/DL (3.2-5.2); ALKALINE PHOSPHATASE 91 U/L (46-116); ALT/SGPT 22 U/L (7.0-40); AST/SGOT 48 U/L (<34); BILIRUBIN,DIRECT 0.2 MG/DL (<0.4); BILIRUBIN,TOTAL 1.4 MG/DL (0.3-1.2); BLOOD UREA NITROGEN 24 MG/DL (9-23); CALCIUM LEVEL 8.9 MG/DL (8.3-10.6); CARBON DIOXIDE LEVEL 27 MMOL/L (20-31); CHLORIDE LEVEL 95 MMOL/L (98-107); CK-MB VALUE MASS < 1.0 NG/ML (<3.6); CREATININE FOR GFR 1.04 MG/DL (0.55-1.30); GLOMERULAR FILTRATION RATE 53.7 (>32); GLUCOSE, FASTING 228 MG/DL (74-106); POTASSIUM SERUM 5.1 MMOL/L (3.5-5.1); SODIUM LEVEL 137 MMOL/L (136-145); TOTAL PROTEIN 6.5 G/DL (5.7-8.2)
[2022-06-19 23:33] LABS: CPK CREATINE PHOSPHOKINASE 72 U/L (34-145); MB/CK RELATIVE INDEX 1.38 (< OR =4)
[2022-06-19 23:44] LABS: APPEARANCE, URINE CLEAR (CLEAR); BACTERIA, URINE AUTO NEGATIVE (NEGATIVE); BILIRUBIN, URINE AUTO NEGATIVE (NEGATIVE); BLOOD, URINE BLOOD NEGATIVE (NEGATIVE); COLOR, URINE YELLOW (YELLOW); GLUCOSE, URINE (UA) AUTO NEGATIVE (NEGATIVE); KETONE, URINE AUTO NEGATIVE (NEGATIVE); LEUKOCYTE ESTERASE, URINE AUTO NEGATIVE (NEGATIVE); NITRITE, URINE AUTO NEGATIVE (NEGATIVE); PROTEIN, URINE AUTO NEGATIVE (NEGATIVE); RBC, URINE AUTO 1 /HPF (0-3); SPECIFIC GRAVITY URINE AUTO 1.015 (1.002-1.035); SQUAMOUS EPITHELIAL CELL UR AU 0 /HPF (0-6); UROBILINOGEN, URINE AUTO 0.2 mg/dL (0.0-2.0); WBC, URINE AUTO 1 /HPF (0-3)
[2022-06-20] VITALS (18 sets, daily range): BP systolic 94–152; BP diastolic 62–89; O2SAT 93
[2022-06-20 00:12] LABS: ABG BASE EXCESS 3.3 (-2.0-2.0); ABG O2 SATURATION 99.2 % (95.0-99.0); ABG PARTIAL PRESSURE CO2 42.9 mmHg (35.0-45.0); ABG PARTIAL PRESSURE O2 210.6 mmHg (75.0-100.0); ABG STANDARD HCO3 27.5 MEQ/L (22.0-26.0); ABG TOTAL CO2 29.3 MEQ/L (23.0-31.0); ABG pH (ARTERIAL) 7.432 UNITS (7.350-7.450)
[2022-06-20] MEDS ORDERED: LEVOTAB10 PO (01:36)
[2022-06-20] MEDS ORDERED: BREO1INH INH (01:36)
[2022-06-20] MEDS ORDERED: LOSA50TA28 PO (01:36)
[2022-06-20] MEDS ORDERED: LEXA1TAB2 PO (01:36)
[2022-06-20] MEDS ORDERED: OYST500T92 PO (01:36)
[2022-06-20] MEDS ORDERED: FURO40TA2 PO (01:36)
[2022-06-20] MEDS ORDERED: METO50TA7 PO (01:36)
[2022-06-20] MEDS ORDERED: LETR2.5T2 PO (01:36)
[2022-06-20] MEDS ORDERED: ELIQ2.5T PO (01:36)
[2022-06-20] MEDS ORDERED: ALBU8.5H INH (01:36)
[2022-06-20] MEDS ORDERED: HOME MED LIST COMPLETE! XX SCH (01:40)
[2022-06-20] MEDS ORDERED: MOM 30ML SUSPENSION UDC PO PRN (02:55)
[2022-06-20] MEDS ORDERED: NOREPINEPHRINE 4MG IN D5 250ML 4 MG in IV 1 EA IV SCH ×2 (03:15)
[2022-06-20] MEDS ORDERED: LR 1,000 ML IV SCH (03:15)
[2022-06-20] MEDS ORDERED: VANCOMYCIN HCL 1,000 MG, VIAL MATE ADAPTER 1 EACH in NS 250 ML IV SCH (03:45)
[2022-06-20 03:54] LABS: BASO % 0.4 % (0.0-1.0); EOS % 0.1 % (0.0-3.0); LYMPH # 0.4 10^3/uL (1.5-5.0); LYMPH % 4.3 % (24.0-44.0); MEAN CORPUSCULAR HGB CONC 31.4 g/dl (32.0-36.5); MEAN CORPUSCULAR VOLUME 95.7 fl (80.0-96.0); MONO # 0.6 10^3/uL (0.0-0.8); MONO % 5.7 % (2.0-8.0); NEUTROPHILS % 86.8 % (36.0-66.0); PLATELET COUNT, AUTOMATED 196 10^3/uL (150-450); RED BLOOD COUNT 3.03 10^6/uL (4.00-5.40); WHITE BLOOD COUNT 10.3 10^3/uL (4.0-10.0)
[2022-06-20] MEDS ORDERED: VANCOMYCIN HCL 1,000 MG, VIAL MATE ADAPTER 1 EACH in D5W 250 ML IV ONE (04:00)
[2022-06-20 04:05] LABS: HEMOGLOBIN 9.1 g/dl (12.0-15.5)
[2022-06-20] MEDS ORDERED: LR 500 ML IV ONE (05:35)
[2022-06-20] MEDS ORDERED: INSULIN LISPRO (NovoLOG) PER UNIT SC SCH ×2 (06:00→07:15)
[2022-06-20] MEDS ORDERED: DEXTROSE 50% 50ML SYRINGE IV PRN (07:15)
[2022-06-20] MEDS ORDERED: GLUCAGON INJ 1MG VIAL SC PRN (07:15)
[2022-06-20] MEDS ORDERED: GLUCOSE 4GM CHEW TABLET PO PRN (07:15)
[2022-06-20 07:48] LABS: MEAN CORPUSCULAR HEMOGLOBIN 28.8 pg (27.0-33.0); MEAN CORPUSCULAR VOLUME 96.2 fl (80.0-96.0); PLATELET COUNT, AUTOMATED 198 10^3/uL (150-450); RED BLOOD COUNT 3.12 10^6/uL (4.00-5.40); WHITE BLOOD COUNT 9.7 10^3/uL (4.0-10.0)
[2022-06-20] MEDS: ADVAIR HFA 230/21MCG INHALER INH SCH ×2 (08:19→19:33)
[2022-06-20 08:34] LABS: ALBUMIN 2.6 G/DL (3.2-5.2); BILIRUBIN,TOTAL 0.6 MG/DL (0.3-1.2); CALCIUM LEVEL 7.8 MG/DL (8.3-10.6); CREATININE FOR GFR 0.99 MG/DL (0.55-1.30); GLOMERULAR FILTRATION RATE 56.9 (>32); POTASSIUM SERUM 3.7 MMOL/L (3.5-5.1); TOTAL PROTEIN 5.3 G/DL (5.7-8.2)
[2022-06-20] MEDS: PANTOPRAZOLE 40MG VIAL IV SCH (08:48)
[2022-06-20] MEDS: ESCITALOPRAM OXALATE 10 MG TAB (LEXAPRO) PO SCH (08:48)
[2022-06-20] MEDS: APIXABAN 2.5 MG TAB (ELIQUIS) PO SCH ×2 (08:48→20:42)
[2022-06-20] MEDS: LOSARTAN 25 MG TAB PO SCH ×2 (08:48→20:35)
[2022-06-20] MEDS: DOCUSATE SODIUM 100MG CAPSULE PO SCH ×2 (08:48→20:42)
[2022-06-20] MEDS: predniSONE 20 MG TAB PO SCH (08:48)
[2022-06-20] MEDS: METOPROLOL TART 50 MG TAB PO SCH (08:49)
[2022-06-20] MEDS: PIPERACILLIN/TAZOBACTAM SOD 3.375 GM in D5W MINI-BAG PLUS 50 ML IV SCH ×3 (12:08→23:37)
[2022-06-20 12:44] LABS: HEMATOCRIT 30.5 % (36.0-47.0); HEMOGLOBIN 9.5 g/dl (12.0-15.5)
[2022-06-20] MEDS: SIMVASTATIN 10 MG TAB PO SCH (14:03)
[2022-06-20] MEDS: LETROZOLE 2.5 MG TAB PO SCH (14:03)
[2022-06-20] MEDS: INSULIN LISPRO (NovoLOG) PER UNIT SC SCH ×3 (14:04→20:35)
[2022-06-20] MEDS ORDERED: VANCOMYCIN HCL 750 MG, VIAL MATE ADAPTER 1 EACH in D5W 250 ML IV SCH (20:00)
[2022-06-21] VITALS (14 sets, daily range): BP systolic 109–160; BP diastolic 67–90
[2022-06-21] MEDS: AZITHROMYCIN INJ 500 MG, VIAL MATE ADAPTER 1 EACH in D5W 250 ML IV SCH (00:52)
[2022-06-21] MEDS ORDERED: NS 1,000 ML IV SCH (01:10)
[2022-06-21] MEDS ORDERED: POTASSIUM CHLORIDE 10MEQ SR TABLET PO ONE (01:30)
[2022-06-21 05:22] LABS: HEMATOCRIT 26.2 % (36.0-47.0); MEAN CORPUSCULAR HEMOGLOBIN 29.4 pg (27.0-33.0); MEAN CORPUSCULAR HGB CONC 30.5 g/dl (32.0-36.5); MEAN CORPUSCULAR VOLUME 96.3 fl (80.0-96.0); PLATELET COUNT, AUTOMATED 198 10^3/uL (150-450); RED BLOOD COUNT 2.72 10^6/uL (4.00-5.40); WHITE BLOOD COUNT 11.8 10^3/uL (4.0-10.0)
[2022-06-21 05:32] LABS: INR 1.18; PROTHROMBIN TIME 15.3 SECONDS (12.5-14.5)
[2022-06-21 06:08] LABS: ALBUMIN 2.2 G/DL (3.2-5.2); ALKALINE PHOSPHATASE 65 U/L (46-116); ALT/SGPT 16 U/L (7.0-40); AST/SGOT 22 U/L (<34); BILIRUBIN,TOTAL 0.6 MG/DL (0.3-1.2); BLOOD UREA NITROGEN 23 MG/DL (9-23); CALCIUM LEVEL 8.1 MG/DL (8.3-10.6); CARBON DIOXIDE LEVEL 30 MMOL/L (20-31); CHLORIDE LEVEL 104 MMOL/L (98-107); CREATININE FOR GFR 0.89 MG/DL (0.55-1.30); GLOMERULAR FILTRATION RATE > 60.0 (>32); GLUCOSE, FASTING 100 MG/DL (74-106); MAGNESIUM LEVEL 1.5 MG/DL (1.8-2.4); POTASSIUM SERUM 4.7 MMOL/L (3.5-5.1); SODIUM LEVEL 141 MMOL/L (136-145); TOTAL PROTEIN 4.7 G/DL (5.7-8.2)
[2022-06-21] MEDS: PIPERACILLIN/TAZOBACTAM SOD 3.375 GM in D5W MINI-BAG PLUS 50 ML IV SCH (06:20)
[2022-06-21] MEDS: INSULIN LISPRO (NovoLOG) PER UNIT SC SCH ×4 (07:30→20:07)
[2022-06-21] MEDS: ADVAIR HFA 230/21MCG INHALER INH SCH ×2 (07:46→20:19)
[2022-06-21] MEDS: LOSARTAN 25 MG TAB PO SCH ×2 (09:00→20:13)
[2022-06-21] MEDS ORDERED: MAG SULF 1GM/100ML (MAG RUN) 1 GM in IV 1 EA IV ONE (10:30)
[2022-06-21] MEDS: APIXABAN 2.5 MG TAB (ELIQUIS) PO SCH ×2 (10:49→20:12)
[2022-06-21] MEDS: PANTOPRAZOLE 40MG VIAL IV SCH (10:49)
[2022-06-21] MEDS: predniSONE 20 MG TAB PO SCH (10:49)
[2022-06-21] MEDS: SIMVASTATIN 10 MG TAB PO SCH (10:49)
[2022-06-21] MEDS: ESCITALOPRAM OXALATE 10 MG TAB (LEXAPRO) PO SCH (10:49)
[2022-06-21] MEDS: DOCUSATE SODIUM 100MG CAPSULE PO SCH ×2 (10:50→20:07)
[2022-06-21] MEDS: LETROZOLE 2.5 MG TAB PO SCH (10:50)
[2022-06-21] MEDS: METOPROLOL TART 50 MG TAB PO SCH (10:51)
[2022-06-21] MEDS: cefTRIAXone SOD 2 GM in D5W MINI-BAG PLUS 50 ML IV SCH (12:21)
[2022-06-21] MEDS ORDERED: PIPERACILLIN/TAZOBACTAM SOD 3.375 GM in D5W MINI-BAG PLUS 50 ML IV SCH (15:55)
[2022-06-21] MEDS ORDERED: VANCOMYCIN HCL 1,000 MG, VIAL MATE ADAPTER 1 EACH in NS 250 ML IV SCH (15:55)
[2022-06-21] MEDS ORDERED: MORPHINE 4 MG/ML 1ML VIAL IV PRN (15:55)
[2022-06-21] MEDS ORDERED: D5W/0.45% SODIUM CHLORIDE 1,000 ML IV SCH (15:55)
[2022-06-21 21:17] LABS: PHOSPHORUS LEVEL 3.4 MG/DL (2.4-5.1)
[2022-06-22] VITALS (20 sets, daily range): BP systolic 100–160; BP diastolic 55–100; O2SAT 89–99
[2022-06-22] MEDS: AZITHROMYCIN INJ 500 MG, VIAL MATE ADAPTER 1 EACH in D5W 250 ML IV SCH (00:52)
[2022-06-22 05:35] LABS: HEMOGLOBIN 8.5 g/dl (12.0-15.5); MEAN CORPUSCULAR HEMOGLOBIN 29.1 pg (27.0-33.0); MEAN CORPUSCULAR HGB CONC 30.4 g/dl (32.0-36.5); MEAN CORPUSCULAR VOLUME 95.9 fl (80.0-96.0); PLATELET COUNT, AUTOMATED 236 10^3/uL (150-450); RED BLOOD COUNT 2.92 10^6/uL (4.00-5.40); WHITE BLOOD COUNT 11.8 10^3/uL (4.0-10.0)
[2022-06-22 05:56] LABS: INR 1.18; PROTHROMBIN TIME 15.2 SECONDS (12.5-14.5)
[2022-06-22 06:03] LABS: ALBUMIN 2.3 G/DL (3.2-5.2); ALKALINE PHOSPHATASE 67 U/L (46-116); ALT/SGPT 21 U/L (7.0-40); AST/SGOT 26 U/L (<34); BILIRUBIN,TOTAL 0.4 MG/DL (0.3-1.2); BLOOD UREA NITROGEN 21 MG/DL (9-23); CALCIUM LEVEL 8.6 MG/DL (8.3-10.6); CARBON DIOXIDE LEVEL 28 MMOL/L (20-31); CHLORIDE LEVEL 107 MMOL/L (98-107); CREATININE FOR GFR 0.78 MG/DL (0.55-1.30); GLOMERULAR FILTRATION RATE > 60.0 (>32); GLUCOSE, FASTING 88 MG/DL (74-106); POTASSIUM SERUM 5.1 MMOL/L (3.5-5.1); SODIUM LEVEL 142 MMOL/L (136-145); TOTAL PROTEIN 4.7 G/DL (5.7-8.2)
[2022-06-22] MEDS: INSULIN LISPRO (NovoLOG) PER UNIT SC SCH ×4 (07:30→21:00)
[2022-06-22] MEDS: ADVAIR HFA 230/21MCG INHALER INH SCH ×2 (07:35→20:00)
[2022-06-22] MEDS: PANTOPRAZOLE 40MG VIAL IV SCH (09:42)
[2022-06-22] MEDS: LETROZOLE 2.5 MG TAB PO SCH (09:42)
[2022-06-22] MEDS: ESCITALOPRAM OXALATE 10 MG TAB (LEXAPRO) PO SCH (09:45)
[2022-06-22] MEDS: SIMVASTATIN 10 MG TAB PO SCH (09:45)
[2022-06-22] MEDS: DOCUSATE SODIUM 100MG CAPSULE PO SCH ×2 (09:46→21:00)
[2022-06-22] MEDS: predniSONE 20 MG TAB PO SCH (09:46)
[2022-06-22] MEDS: APIXABAN 2.5 MG TAB (ELIQUIS) PO SCH ×2 (09:46→21:39)
[2022-06-22] MEDS: METOPROLOL TART 50 MG TAB PO SCH (09:46)
[2022-06-22] MEDS: LOSARTAN 25 MG TAB PO SCH ×2 (09:46→21:39)
[2022-06-22 12:16] LABS: ABG BASE EXCESS 4.1 (-2.0-2.0); ABG HCO3 28.1 MEQ/L (22.0-26.0); ABG O2 SATURATION 79.3 % (95.0-99.0); ABG PARTIAL PRESSURE CO2 39.9 mmHg (35.0-45.0); ABG STANDARD HCO3 27.8 MEQ/L (22.0-26.0); ABG TOTAL CO2 29.4 MEQ/L (23.0-31.0); ABG pH (ARTERIAL) 7.466 UNITS (7.350-7.450)
[2022-06-22] MEDS ORDERED: FUROSEMIDE 100MG/10ML VIAL IV STA (12:19)
[2022-06-22] MEDS: ALBUTEROL SULFATE 2.5MG/0.5ML INH NEB SOLN NEB SCH ×4 (12:33→23:03)
[2022-06-22] MEDS ORDERED: methylPREDNISolone 125MG 2ML VIAL IV ONE (12:45)
[2022-06-22] MEDS: cefTRIAXone SOD 2 GM in D5W MINI-BAG PLUS 50 ML IV SCH (12:53)
[2022-06-22] MEDS ORDERED: AZITHROMYCIN 250MG TABLET PO ONE (13:35)
[2022-06-22 17:51] LABS: CK-MB VALUE MASS 1.2 NG/ML (<3.6)
[2022-06-22 17:52] LABS: MB/CK RELATIVE INDEX 2.85 (< OR =4)
[2022-06-23] VITALS (28 sets, daily range): BP systolic 131–150; BP diastolic 74–88; O2SAT 82–100
[2022-06-23] MEDS: AZITHROMYCIN INJ 500 MG, VIAL MATE ADAPTER 1 EACH in NS 250 ML IV SCH (00:50)
[2022-06-23] MEDS: ALBUTEROL SULFATE 2.5MG/0.5ML INH NEB SOLN NEB SCH ×6 (03:29→23:02)
[2022-06-23 05:44] LABS: HEMOGLOBIN 8.8 g/dl (12.0-15.5); MEAN CORPUSCULAR HEMOGLOBIN 29.3 pg (27.0-33.0); MEAN CORPUSCULAR HGB CONC 30.3 g/dl (32.0-36.5); MEAN CORPUSCULAR VOLUME 96.7 fl (80.0-96.0); PLATELET COUNT, AUTOMATED 250 10^3/uL (150-450); WHITE BLOOD COUNT 11.2 10^3/uL (4.0-10.0)
[2022-06-23 05:56] LABS: INR 1.09; PROTHROMBIN TIME 14.3 SECONDS (12.5-14.5)
[2022-06-23 06:28] LABS: ALBUMIN 2.4 G/DL (3.2-5.2); ALKALINE PHOSPHATASE 71 U/L (46-116); ALT/SGPT 19 U/L (7.0-40); AST/SGOT 24 U/L (<34); BILIRUBIN,TOTAL 0.3 MG/DL (0.3-1.2); BLOOD UREA NITROGEN 32 MG/DL (9-23); CALCIUM LEVEL 8.6 MG/DL (8.3-10.6); CARBON DIOXIDE LEVEL 29 MMOL/L (20-31); CHLORIDE LEVEL 105 MMOL/L (98-107); CREATININE FOR GFR 0.94 MG/DL (0.55-1.30); GLOMERULAR FILTRATION RATE > 60.0 (>32); GLUCOSE, FASTING 110 MG/DL (74-106); SODIUM LEVEL 140 MMOL/L (136-145)
[2022-06-23] MEDS: ADVAIR HFA 230/21MCG INHALER INH SCH ×2 (07:15→19:39)
[2022-06-23] MEDS: INSULIN LISPRO (NovoLOG) PER UNIT SC SCH ×4 (08:56→20:49)
[2022-06-23] MEDS: ESCITALOPRAM OXALATE 10 MG TAB (LEXAPRO) PO SCH (08:57)
[2022-06-23] MEDS: SIMVASTATIN 10 MG TAB PO SCH (08:57)
[2022-06-23] MEDS: LOSARTAN 25 MG TAB PO SCH ×2 (08:57→20:49)
[2022-06-23] MEDS: APIXABAN 2.5 MG TAB (ELIQUIS) PO SCH ×2 (08:57→20:49)
[2022-06-23] MEDS: PANTOPRAZOLE 40MG VIAL IV SCH (08:57)
[2022-06-23] MEDS: predniSONE 20 MG TAB PO SCH (08:57)
[2022-06-23] MEDS: METOPROLOL TART 50 MG TAB PO SCH (08:57)
[2022-06-23] MEDS: DOCUSATE SODIUM 100MG CAPSULE PO SCH ×2 (08:57→20:49)
[2022-06-23] MEDS: LETROZOLE 2.5 MG TAB PO SCH (08:57)
[2022-06-23] MEDS ORDERED: AZITHROMYCIN 250MG TABLET PO SCH (09:00)
[2022-06-23] MEDS: FUROSEMIDE 40MG/4ML VIAL IV SCH ×2 (10:47→18:02)
[2022-06-23] MEDS: cefTRIAXone SOD 2 GM in D5W MINI-BAG PLUS 50 ML IV SCH (12:36)
[2022-06-24] VITALS (27 sets, daily range): BP systolic 127–170; BP diastolic 71–100; O2SAT 74–100
[2022-06-24] MEDS ORDERED: amLODIPine 5 MG TAB PO ONE (00:15)
[2022-06-24] MEDS: AZITHROMYCIN INJ 500 MG, VIAL MATE ADAPTER 1 EACH in NS 250 ML IV SCH ×2 (00:28→23:53)
[2022-06-24] MEDS ORDERED: KETOROLAC 30 MG/ML 1ML VIAL IV ONE (02:00)
[2022-06-24] MEDS: ALBUTEROL SULFATE 2.5MG/0.5ML INH NEB SOLN NEB SCH ×5 (03:30→21:21)
[2022-06-24 07:00] LABS: HEMATOCRIT 31.3 % (36.0-47.0); HEMOGLOBIN 9.5 g/dl (12.0-15.5); MEAN CORPUSCULAR HEMOGLOBIN 29.7 pg (27.0-33.0); MEAN CORPUSCULAR HGB CONC 30.4 g/dl (32.0-36.5); MEAN CORPUSCULAR VOLUME 97.8 fl (80.0-96.0); PLATELET COUNT, AUTOMATED 278 10^3/uL (150-450); WHITE BLOOD COUNT 12.3 10^3/uL (4.0-10.0)
[2022-06-24 07:12] LABS: INR 1.13; PROTHROMBIN TIME 14.7 SECONDS (12.5-14.5)
[2022-06-24] MEDS: INSULIN LISPRO (NovoLOG) PER UNIT SC SCH ×4 (07:30→20:01)
[2022-06-24 07:33] LABS: ALBUMIN 2.6 G/DL (3.2-5.2); BILIRUBIN,TOTAL 0.4 MG/DL (0.3-1.2); CALCIUM LEVEL 8.9 MG/DL (8.3-10.6); CREATININE FOR GFR 1.12 MG/DL (0.55-1.30); GLOMERULAR FILTRATION RATE 49.3 (>32); MAGNESIUM LEVEL 1.9 MG/DL (1.8-2.4); POTASSIUM SERUM 4.2 MMOL/L (3.5-5.1); TOTAL PROTEIN 5.3 G/DL (5.7-8.2)
[2022-06-24] MEDS: ADVAIR HFA 230/21MCG INHALER INH SCH ×2 (07:36→21:21)
[2022-06-24] MEDS: METOPROLOL TART 50 MG TAB PO SCH (08:01)
[2022-06-24] MEDS: LOSARTAN 25 MG TAB PO SCH ×2 (08:01→20:01)
[2022-06-24] MEDS: PANTOPRAZOLE 40MG VIAL IV SCH (08:01)
[2022-06-24] MEDS: FUROSEMIDE 40MG/4ML VIAL IV SCH (08:01)
[2022-06-24] MEDS: ESCITALOPRAM OXALATE 10 MG TAB (LEXAPRO) PO SCH (08:01)
[2022-06-24] MEDS: LETROZOLE 2.5 MG TAB PO SCH (08:01)
[2022-06-24] MEDS: APIXABAN 2.5 MG TAB (ELIQUIS) PO SCH ×2 (08:02→20:01)
[2022-06-24] MEDS: predniSONE 20 MG TAB PO SCH (08:02)
[2022-06-24] MEDS: SIMVASTATIN 10 MG TAB PO SCH (08:02)
[2022-06-24] MEDS: DOCUSATE SODIUM 100MG CAPSULE PO SCH ×2 (08:02→20:01)
[2022-06-24] MEDS: cefTRIAXone SOD 2 GM in D5W MINI-BAG PLUS 50 ML IV SCH (12:30)
[2022-06-24 16:08] LABS: BODY FLUID CULTURE Not indicated. (.); LEGIONELLA ANTIGEN URINE Negative (Negative); ORGANISM ID Not indicated. (.); SPECIMEN SOURCE Urine (.); URINE STREP PNEUMONIAE ANTIGEN Negative (Negative)
[2022-06-25] VITALS (14 sets, daily range): BP systolic 137–172; BP diastolic 76–92; O2SAT 90–100
[2022-06-25] MEDS: ALBUTEROL SULFATE 2.5MG/0.5ML INH NEB SOLN NEB SCH ×4 (00:54→11:10)
[2022-06-25 07:46] LABS: HEMATOCRIT 31.6 % (36.0-47.0); HEMOGLOBIN 9.5 g/dl (12.0-15.5); MEAN CORPUSCULAR HEMOGLOBIN 29.9 pg (27.0-33.0); MEAN CORPUSCULAR HGB CONC 30.1 g/dl (32.0-36.5); MEAN CORPUSCULAR VOLUME 99.4 fl (80.0-96.0); PLATELET COUNT, AUTOMATED 245 10^3/uL (150-450); RED BLOOD COUNT 3.18 10^6/uL (4.00-5.40); WHITE BLOOD COUNT 10.4 10^3/uL (4.0-10.0)
[2022-06-25] MEDS: ADVAIR HFA 230/21MCG INHALER INH SCH (07:53)
[2022-06-25 07:54] LABS: INR 0.98; PROTHROMBIN TIME 13.2 SECONDS (12.5-14.5)
[2022-06-25] MEDS: ESCITALOPRAM OXALATE 10 MG TAB (LEXAPRO) PO SCH (08:10)
[2022-06-25] MEDS: PANTOPRAZOLE 40MG VIAL IV SCH (08:11)
[2022-06-25] MEDS: APIXABAN 2.5 MG TAB (ELIQUIS) PO SCH (08:11)
[2022-06-25] MEDS: LOSARTAN 25 MG TAB PO SCH (08:11)
[2022-06-25] MEDS: INSULIN LISPRO (NovoLOG) PER UNIT SC SCH ×2 (08:11→11:46)
[2022-06-25] MEDS: SIMVASTATIN 10 MG TAB PO SCH (08:11)
[2022-06-25] MEDS: METOPROLOL TART 50 MG TAB PO SCH (08:11)
[2022-06-25] MEDS: predniSONE 20 MG TAB PO SCH (08:12)
[2022-06-25] MEDS: DOCUSATE SODIUM 100MG CAPSULE PO SCH (08:12)
[2022-06-25 08:17] LABS: ALBUMIN 2.7 G/DL (3.2-5.2); ALKALINE PHOSPHATASE 84 U/L (46-116); ALT/SGPT 31 U/L (7.0-40); AST/SGOT 36 U/L (<34); BILIRUBIN,TOTAL 0.4 MG/DL (0.3-1.2); BLOOD UREA NITROGEN 33 MG/DL (9-23); CALCIUM LEVEL 8.8 MG/DL (8.3-10.6); CARBON DIOXIDE LEVEL 32 MMOL/L (20-31); CHLORIDE LEVEL 104 MMOL/L (98-107); CREATININE FOR GFR 0.77 MG/DL (0.55-1.30); GLOMERULAR FILTRATION RATE > 60.0 (>32); GLUCOSE, FASTING 74 MG/DL (74-106); MAGNESIUM LEVEL 1.8 MG/DL (1.8-2.4); SODIUM LEVEL 144 MMOL/L (136-145); TOTAL PROTEIN 5.3 G/DL (5.7-8.2)
[2022-06-25] MEDS: LETROZOLE 2.5 MG TAB PO SCH (09:25)
[2022-06-25] MEDS: SODIUM CHLORIDE 0.9% INJ 10 ML SYR IV PRN ×2 (10:26→13:02)
[2022-06-25] MEDS: cefTRIAXone SOD 2 GM in D5W MINI-BAG PLUS 50 ML IV SCH (11:58)
[2022-06-25] MEDS ORDERED: AZIT500T5 PO (12:36)
[2022-06-25] MEDS ORDERED: CEFD300C41 PO (12:36)
[2022-06-25] MEDS ORDERED: PRED10TA2 PO (12:36)
[2022-06-26] MEDS ORDERED: SODIUM CHLORIDE 0.9% INJ 10 ML SYR IV SCH (09:00)
== END 2022-06-25 15:49 | DRG 871 ==
LOC: M ED 22:24 → EDBD 22:24 → M ED INP 06-20 02:52 → ENRESERV 06-20 03:54 → M ICU 06-20 05:03 → M PCU 06-21 21:28
PROVIDERS: ADMIT Internal Medicine; ATTEND Internal Medicine Pulmonary Disease
DX: A41.9 Sepsis, unspecified organism (principal); R65.21 Severe sepsis with septic shock; J15.6 Pneumonia due to other Gram-negative bacteria; J96.21 Acute and chronic respiratory failure with hypoxia; I50.33 Acute on chronic diastolic (congestive) heart failure; J70.0 Acute pulmonary manifestations due to radiation; J84.9 Interstitial pulmonary disease, unspecified; E87.20 Acidosis, unspecified; C34.91 Malignant neoplasm of unspecified part of right bronchus or lung; I48.91 Unspecified atrial fibrillation; I49.5 Sick sinus syndrome; E83.42 Hypomagnesemia; D64.9 Anemia, unspecified; I11.0 Hypertensive heart disease with heart failure; R73.9 Hyperglycemia, unspecified; F32.A Depression, unspecified; Z66 Do not resuscitate; E78.5 Hyperlipidemia, unspecified; Z85.3 Personal history of malignant neoplasm of breast; Z95.2 Presence of prosthetic heart valve; Z86.16 Personal history of COVID-19; Z85.41 Personal history of malignant neoplasm of cervix uteri; Z79.01 Long term (current) use of anticoagulants; Z87.891 Personal history of nicotine dependence; Z95.0 Presence of cardiac pacemaker; Z92.3 Personal history of irradiation; Z79.899 Other long term (current) drug therapy; Z91.030 Bee allergy status

== ENCOUNTER 2022-06-25 15:06 | Inpatient (IN) | payer MEDICARE, OTHER ==
[~2022-06-25] VITALS: Ht 152.4 cm; Wt 50.5 kg
[~2022-06-25 15:06] MED LIST changes: +ALBU8.5H INH; +AZIT500T5 PO; +BREO1INH INH; +ELIQ2.5T PO; +FURO40TA2 PO; +LEVOTAB10 PO; +LOSA50TA28 PO; +METO50TA7 PO; +OYST500T92 PO
[2022-06-25 15:50] VITALS: BP 137/79
[2022-06-25] MEDS ORDERED: GLUCAGON INJ 1MG VIAL SC PRN (16:20)
[2022-06-25] MEDS ORDERED: LEVALBUTEROL 1.25MG 0.5ML CONCENTRATE NEB INH PRN (16:20)
[2022-06-25] MEDS ORDERED: MIRALAX *UNIT DOSE* 17GM PACKET PO PRN (16:20)
[2022-06-25] MEDS ORDERED: ACETAMINOPHEN TAB 650MG DOSE (2X325MG) PO PRN (16:20)
[2022-06-25] MEDS ORDERED: GLUCOSE 4GM CHEW TABLET PO PRN (16:20)
[2022-06-25] MEDS ORDERED: DEXTROSE 50% 50ML SYRINGE IV PRN (16:20)
[2022-06-25] MEDS: FUROSEMIDE 20 MG TAB PO SCH (17:35)
[2022-06-25] MEDS: SUCRALFATE 1 GM TAB PO SCH (17:36)
[2022-06-25] MEDS: INSULIN LISPRO (NovoLOG) PER UNIT SC SCH (17:37)
[2022-06-25 20:00] VITALS: BP 140/85
[2022-06-25] MEDS ORDERED: SIMVASTATIN 10 MG TAB PO SCH (21:00)
[2022-06-25] MEDS ORDERED: SENNA 8.6 MG TAB (SENOKOT) PO SCH (21:00)
[2022-06-25] MEDS ORDERED: INSULIN LISPRO (NovoLOG) PER UNIT SC SCH (21:00)
[2022-06-25] MEDS: DOCUSATE SODIUM 100MG CAPSULE PO SCH (21:00)
[2022-06-25] MEDS: PANTOPRAZOLE 40MG TAB (PROTONIX) PO SCH (21:03)
[2022-06-25] MEDS: CEFDINIR 300 MG CAP (OMNICEF) PO SCH (21:03)
[2022-06-25] MEDS: LOSARTAN 25 MG TAB PO SCH (21:04)
[2022-06-25] MEDS: APIXABAN 2.5 MG TAB (ELIQUIS) PO SCH (21:04)
[2022-06-25] MEDS: REMEDY PHYTOPLEX Z-GUARD PASTE 113GM TUBE (FROM STOREROOM PRODUCT) TOP SCH (21:05)
[2022-06-25] MEDS: COMBIVENT RESPIMAT 100-20MCG INHALER 4GM INH SCH (21:22)
[2022-06-25] MEDS: ADVAIR HFA 230/21MCG INHALER INH SCH (21:23)
[2022-06-26 06:00] VITALS: BP 156/76
[2022-06-26 06:46] LABS: HEMATOCRIT 30.6 % (36.0-47.0); HEMOGLOBIN 9.4 g/dl (12.0-15.5); MEAN CORPUSCULAR HEMOGLOBIN 30.1 pg (27.0-33.0); MEAN CORPUSCULAR HGB CONC 30.7 g/dl (32.0-36.5); MEAN CORPUSCULAR VOLUME 98.1 fl (80.0-96.0); PLATELET COUNT, AUTOMATED 217 10^3/uL (150-450); RED BLOOD COUNT 3.12 10^6/uL (4.00-5.40); WHITE BLOOD COUNT 9.7 10^3/uL (4.0-10.0)
[2022-06-26 07:08] LABS: ALBUMIN 2.7 G/DL (3.2-5.2); ALKALINE PHOSPHATASE 81 U/L (46-116); ALT/SGPT 33 U/L (7.0-40); AST/SGOT 45 U/L (<34); BILIRUBIN,TOTAL 0.5 MG/DL (0.3-1.2); BLOOD UREA NITROGEN 24 MG/DL (9-23); CALCIUM LEVEL 8.4 MG/DL (8.3-10.6); CARBON DIOXIDE LEVEL 31 MMOL/L (20-31); CHLORIDE LEVEL 105 MMOL/L (98-107); CREATININE FOR GFR 0.71 MG/DL (0.55-1.30); GLOMERULAR FILTRATION RATE > 60.0 (>32); GLUCOSE, FASTING 74 MG/DL (74-106); POTASSIUM SERUM 4.5 MMOL/L (3.5-5.1); SODIUM LEVEL 142 MMOL/L (136-145); TOTAL PROTEIN 5.3 G/DL (5.7-8.2)
[2022-06-26] MEDS: COMBIVENT RESPIMAT 100-20MCG INHALER 4GM INH SCH ×2 (07:20→13:40)
[2022-06-26] MEDS: ADVAIR HFA 230/21MCG INHALER INH SCH (07:20)
[2022-06-26] MEDS: INSULIN LISPRO (NovoLOG) PER UNIT SC SCH (07:30)
[2022-06-26 08:28] LABS: ATYPICAL LYMPH 5 % (0-5); LYMPHOCYTES 12 % (16-44); METAMYELOCYTES 2 % (0-0); MONOCYTES 4 % (0-5); NEUTROPHILS 73 % (28-66)
[2022-06-26 08:29] LABS: HYPOCHROMASIA 1+
[2022-06-26 08:30] LABS: ANISOCYTOSIS 2+; PLATELET ESTIMATE NORMAL (NORMAL)
[2022-06-26] MEDS ORDERED: METOPROLOL TART 50 MG TAB PO SCH (09:00)
[2022-06-26] MEDS ORDERED: ESCITALOPRAM OXALATE 10 MG TAB (LEXAPRO) PO SCH (09:00)
[2022-06-26] MEDS ORDERED: predniSONE 20 MG TAB PO SCH (09:00)
[2022-06-26] MEDS ORDERED: LETROZOLE 2.5 MG TAB PO SCH (09:00)
[2022-06-26] MEDS ORDERED: AZITHROMYCIN 250MG TABLET PO SCH (09:00)
[2022-06-26] MEDS ORDERED: CETIRIZINE (ZyrTEC) 10 MG TAB PO SCH (09:00)
[2022-06-26] MEDS: DOCUSATE SODIUM 100MG CAPSULE PO SCH (09:00)
[2022-06-26] MEDS: CEFDINIR 300 MG CAP (OMNICEF) PO SCH (09:23)
[2022-06-26] MEDS: SUCRALFATE 1 GM TAB PO SCH ×2 (09:23→13:00)
[2022-06-26 09:24] VITALS: BP 128/77
[2022-06-26] MEDS: FUROSEMIDE 20 MG TAB PO SCH (09:24)
[2022-06-26] MEDS: LOSARTAN 25 MG TAB PO SCH (09:24)
[2022-06-26] MEDS: APIXABAN 2.5 MG TAB (ELIQUIS) PO SCH (09:24)
[2022-06-26] MEDS: PANTOPRAZOLE 40MG TAB (PROTONIX) PO SCH (09:25)
[2022-06-26] MEDS: REMEDY PHYTOPLEX Z-GUARD PASTE 113GM TUBE (FROM STOREROOM PRODUCT) TOP SCH (09:25)
[2022-06-26 14:17] VITALS: BP 140/83
[2022-06-28] MEDS ORDERED: predniSONE 10MG TAB PO SCH (09:00)
== END 2022-06-26 14:20 | disposition short-term general hospital (02) | DRG 196 ==
LOC: M PM&R 15:50
PROVIDERS: ADMIT Physical Medicine & Rehabilitation; ATTEND Physical Medicine & Rehabilitation
DX: J84.9 Interstitial pulmonary disease, unspecified (principal); J96.21 Acute and chronic respiratory failure with hypoxia; C34.91 Malignant neoplasm of unspecified part of right bronchus or lung; J70.0 Acute pulmonary manifestations due to radiation; I48.91 Unspecified atrial fibrillation; I49.5 Sick sinus syndrome; I11.0 Hypertensive heart disease with heart failure; R53.1 Weakness; E78.5 Hyperlipidemia, unspecified; Z87.891 Personal history of nicotine dependence; Z85.3 Personal history of malignant neoplasm of breast; Z85.41 Personal history of malignant neoplasm of cervix uteri; Z74.09 Other reduced mobility; Z74.1 Need for assistance with personal care; Z95.0 Presence of cardiac pacemaker; Z86.16 Personal history of COVID-19; Z95.2 Presence of prosthetic heart valve; Z92.21 Personal history of antineoplastic chemotherapy; Z66 Do not resuscitate; Z99.81 Dependence on supplemental oxygen; Z79.01 Long term (current) use of anticoagulants; Z79.52 Long term (current) use of systemic steroids; Z79.2 Long term (current) use of antibiotics; Z79.899 Other long term (current) drug therapy; Z91.030 Bee allergy status; F32.A Depression, unspecified

== ENCOUNTER 2022-06-26 13:58 | Observation (INO) | payer MEDICARE, OTHER ==
[~2022-06-26] VITALS: Ht 152.4 cm; Wt 50.1 kg
[2022-06-26] VITALS (11 sets, daily range): BP systolic 108–140; BP diastolic 60–89; O2SAT 91–99
[2022-06-26] MEDS: FUROSEMIDE 40 MG TAB PO SCH (15:51)
[2022-06-26] MEDS: predniSONE 20 MG TAB PO SCH (15:53)
[2022-06-26] MEDS ORDERED: ISOVUE-370 76% 100ML VIAL As Ordered ONE (16:04)
[2022-06-26] MEDS ORDERED: IPRATROPIUM 0.5MG/ALBUTEROL 2.5MG INH SOL UD 3ML (DUONEB) NEB SCH (20:00)
[2022-06-26] MEDS: CEFDINIR 300 MG CAP (OMNICEF) PO SCH (20:20)
[2022-06-26] MEDS: PRAVASTATIN 10 MG TAB PO SCH (20:20)
[2022-06-26] MEDS: APIXABAN 2.5 MG TAB (ELIQUIS) PO SCH (20:21)
[2022-06-26] MEDS: ADVAIR HFA 230/21MCG INHALER INH SCH (20:26)
[2022-06-26] MEDS: ALBUTEROL SULFATE 2.5MG/0.5ML INH NEB SOLN INH SCH (20:26)
[2022-06-26] MEDS: IPRATROPIUM 0.02% SOLN 0.5MG 2.5ML NEB INH SCH (20:26)
[2022-06-27] VITALS (30 sets, daily range): BP systolic 100–160; BP diastolic 64–97; O2SAT 72–99
[2022-06-27] MEDS: ALBUTEROL SULFATE 2.5MG/0.5ML INH NEB SOLN INH SCH ×4 (02:46→19:34)
[2022-06-27] MEDS: IPRATROPIUM 0.02% SOLN 0.5MG 2.5ML NEB INH SCH ×4 (02:46→19:34)
[2022-06-27] MEDS: ADVAIR HFA 230/21MCG INHALER INH SCH ×2 (07:47→19:33)
[2022-06-27 07:49] LABS: HEMATOCRIT 31.4 % (36.0-47.0); HEMOGLOBIN 9.5 g/dl (12.0-15.5); MEAN CORPUSCULAR HEMOGLOBIN 29.6 pg (27.0-33.0); MEAN CORPUSCULAR HGB CONC 30.3 g/dl (32.0-36.5); MEAN CORPUSCULAR VOLUME 97.8 fl (80.0-96.0); PLATELET COUNT, AUTOMATED 302 10^3/uL (150-450); RED BLOOD COUNT 3.21 10^6/uL (4.00-5.40); WHITE BLOOD COUNT 13.4 10^3/uL (4.0-10.0)
[2022-06-27 08:41] LABS: BLOOD UREA NITROGEN 24 MG/DL (9-23); CALCIUM LEVEL 8.8 MG/DL (8.3-10.6); CARBON DIOXIDE LEVEL 38 MMOL/L (20-31); CHLORIDE LEVEL 99 MMOL/L (98-107); CREATININE FOR GFR 0.84 MG/DL (0.55-1.30); GLOMERULAR FILTRATION RATE > 60.0 (>32); GLUCOSE, FASTING 92 MG/DL (74-106); POTASSIUM SERUM 3.8 MMOL/L (3.5-5.1); SODIUM LEVEL 142 MMOL/L (136-145)
[2022-06-27] MEDS ORDERED: AZITHROMYCIN 250MG TABLET PO ONE (09:00)
[2022-06-27] MEDS: CEFDINIR 300 MG CAP (OMNICEF) PO SCH ×2 (09:16→20:18)
[2022-06-27] MEDS: FUROSEMIDE 40 MG TAB PO SCH ×2 (09:17→17:29)
[2022-06-27] MEDS: APIXABAN 2.5 MG TAB (ELIQUIS) PO SCH ×2 (09:18→20:19)
[2022-06-27] MEDS: LETROZOLE 2.5 MG TAB PO SCH (09:18)
[2022-06-27] MEDS: METOPROLOL TART 50 MG TAB PO SCH (09:21)
[2022-06-27] MEDS: LOSARTAN 25 MG TAB PO SCH (09:21)
[2022-06-27] MEDS: ESCITALOPRAM OXALATE 10 MG TAB (LEXAPRO) PO SCH (09:21)
[2022-06-27] MEDS: predniSONE 20 MG TAB PO SCH (09:23)
[2022-06-27] MEDS: PRAVASTATIN 10 MG TAB PO SCH (20:19)
[2022-06-28] VITALS (14 sets, daily range): BP systolic 114–149; BP diastolic 72–90; O2SAT 89–99
[2022-06-28] MEDS: ALBUTEROL SULFATE 2.5MG/0.5ML INH NEB SOLN INH SCH ×3 (02:50→13:10)
[2022-06-28] MEDS: IPRATROPIUM 0.02% SOLN 0.5MG 2.5ML NEB INH SCH ×3 (02:50→13:10)
[2022-06-28 05:40] LABS: HEMATOCRIT 29.8 % (36.0-47.0); HEMOGLOBIN 8.9 g/dl (12.0-15.5); MEAN CORPUSCULAR HEMOGLOBIN 29.4 pg (27.0-33.0); MEAN CORPUSCULAR HGB CONC 29.9 g/dl (32.0-36.5); MEAN CORPUSCULAR VOLUME 98.3 fl (80.0-96.0); PLATELET COUNT, AUTOMATED 255 10^3/uL (150-450); RED BLOOD COUNT 3.03 10^6/uL (4.00-5.40); WHITE BLOOD COUNT 10.4 10^3/uL (4.0-10.0)
[2022-06-28 06:17] LABS: BLOOD UREA NITROGEN 27 MG/DL (9-23); CALCIUM LEVEL 8.6 MG/DL (8.3-10.6); CARBON DIOXIDE LEVEL > 40.0 MMOL/L (20-31); CHLORIDE LEVEL 96 MMOL/L (98-107); CREATININE FOR GFR 0.86 MG/DL (0.55-1.30); GLOMERULAR FILTRATION RATE > 60.0 (>32); GLUCOSE, FASTING 88 MG/DL (74-106); MAGNESIUM LEVEL 1.7 MG/DL (1.8-2.4); PHOSPHORUS LEVEL 3.7 MG/DL (2.4-5.1); POTASSIUM SERUM 3.5 MMOL/L (3.5-5.1); SODIUM LEVEL 140 MMOL/L (136-145)
[2022-06-28] MEDS: ADVAIR HFA 230/21MCG INHALER INH SCH (07:09)
[2022-06-28] MEDS ORDERED: acetaZOLAMIDE 250MG TAB PO ONE (08:00)
[2022-06-28] MEDS: ESCITALOPRAM OXALATE 10 MG TAB (LEXAPRO) PO SCH (09:24)
[2022-06-28] MEDS: CEFDINIR 300 MG CAP (OMNICEF) PO SCH (09:24)
[2022-06-28] MEDS: predniSONE 20 MG TAB PO SCH (09:25)
[2022-06-28] MEDS: LOSARTAN 25 MG TAB PO SCH (09:25)
[2022-06-28] MEDS: METOPROLOL TART 50 MG TAB PO SCH (09:25)
[2022-06-28] MEDS: LETROZOLE 2.5 MG TAB PO SCH (09:26)
[2022-06-28] MEDS: APIXABAN 2.5 MG TAB (ELIQUIS) PO SCH (09:26)
[2022-06-28] MEDS ORDERED: PRED20TA PO ×2 (14:01→15:59)
[2022-06-28] MEDS ORDERED: ATIV1TAB10 PO ×2 (14:03→14:44)
[2022-06-28] MEDS ORDERED: MORP1SOL5 PO ×2 (14:03→14:44)
== END 2022-06-28 16:57 | disposition home health service (06) ==
LOC: M PCU 14:15 → INTOOBSV 14:15 → M PCU 14:28
PROVIDERS: ADMIT Internal Medicine; ATTEND Internal Medicine
DX: J96.20 Acute and chronic respiratory failure, unspecified whether with hypoxia or hypercapnia (principal); J18.9 Pneumonia, unspecified organism; J70.0 Acute pulmonary manifestations due to radiation; A41.9 Sepsis, unspecified organism; D72.829 Elevated white blood cell count, unspecified; I48.0 Paroxysmal atrial fibrillation; Z79.01 Long term (current) use of anticoagulants; Z79.52 Long term (current) use of systemic steroids; I11.9 Hypertensive heart disease without heart failure; I50.30 Unspecified diastolic (congestive) heart failure; E87.8 Other disorders of electrolyte and fluid balance, not elsewhere classified; F32.A Depression, unspecified; Z86.16 Personal history of COVID-19; Z91.030 Bee allergy status; Z85.118 Personal history of other malignant neoplasm of bronchus and lung; R65.21 Severe sepsis with septic shock
CPT/HCPCS: 71275; 80048; 83735; 84100; 84145; 85027; 94640; 97116; 97161; 97165; 97530; G0378; J7512; Q9967